=== PATIENT | male | born 1960 | race Caucasian/White ===

== ENCOUNTER 2017-03-22 15:08 | Emergency (ER) | payer BC, OTHER ==
[2017-03-22 15:50] VITALS: TEMP 98.1; BMI 41.8
--- NOTE | 2017-03-22 16:09 | PDOC ---
History of Present Illness - General Chief Complaint: Chest Pain Stated Complaint: ANXIETY Time Seen by Provider: 03/22/17 16:07 - History of Present Illness Initial Comments: 03/22/17 16:19 57yo male with a pmhx of alcohol abuse, htn, hld, and panic attacks/Generalized anxiety disorder presents from home for eval of a panic attack. States he has been drinking since yesterday - he was celebrating his birthday. States his last drink was noon today. States he started to feel panicky. States he developed cp and sob with the panic attack. Denies radiation of the pain. Pt states he did his breathing exercises - slow breathing and now is feeling better. During the panic attack he felt he was "going to " - which he states has happened with his panic attacks in the past. Denies cp/sob at this time. Denies calf cramping. States he is interested in detox. Denies SI/HI. Denies abd pain. No dysuria. No f/c. No other complaints. PMHx: HTN, HLD, alcohol abuse, panick attacks, FREEDOM PSHX: L arm sx Allergies: NKDA Meds: Amlodipine, lisinopril, sertraline 03/22/17 16:25 Past History - Past Medical History Allergies/Adverse Reactions: Allergies Allergy/AdvReac Type Severity Reaction Status Date / Time No Known Allergies Allergy Verified 03/22/17 15:51 Home Medications: Ambulatory Orders Ascorbate Calcium [Vitamin C] 500 mg PO DAILY 03/22/17 Folic Acid 1 mg PO DAILY 03/22/17 Lisinopril 20 mg PO DAILY 03/22/17 Metoprolol Tartrate 25 mg PO DAILY 03/22/17 Milk Thistle 240 mg PO DAILY 03/22/17 Multivitamin [One Daily] 1 each PO DAILY 03/22/17 Sertraline HCl [Zoloft] 150 mg PO DAILY 03/22/17 Simvastatin 20 mg PO HS 03/22/17 Anemia: No Asthma: No Cancer: No Cardiac Disorders: No CVA: No COPD: No Diabetes: No HTN: Yes Hypercholesterolemia: Yes Psychiatric Problems: Yes - Surgical History Abdominal Surgery: No Appendectomy: No Cardiac Surgery: No Cholecystectomy: No Gastric Stapling: No GI Surgery: No - Immunization History Immunization Up to Date: Yes - Suicide/Smoking/Psychosocial Hx Smoking History: Never smoked Have you smoked in the past 12 months: No Information on smoking cessation initiated: No Hx Alcohol Use: Yes Review of Systems - Review of Systems Able to Perform ROS?: Yes Is the patient limited Indonesian proficient: No Constitutional: No: Chills, Fever HEENTM: No: Blurred Vision, Throat Pain, Difficulty Swallowing Respiratory: Yes: Shortness of Breath. No: Cough, Wheezing Cardiac (ROS): Yes: Chest Pain. No: Irregular Heart Rate, Lightheadedness, Palpitations ABD/GI: No: Diarrhea, Nausea, Vomiting : No: Burning, Dysuria Musculoskeletal: No: Back Pain Integumentary: Yes: Sweating Neurological: No: Headache, Numbness, Paresthesia, Ataxia, Dizziness Psychiatric: Yes: Anxiety, Stressors, Emotional Problems, Mood Swings, Other ( alcohol abuse) All Other Systems: Reviewed and Negative *Physical Exam - Vital Signs Last Vital Signs Temp Pulse Resp BP Pulse Ox 98.1 F 73 18 152/73 98 03/22/17 15:09 03/22/17 15:50 03/22/17 15:50 03/22/17 15:50 03/22/17 15:50 - Physical Exam General Appearance: Yes: Nourished, Appropriately Dressed, Apparent Distress, Alcohol on Breath, Obese, Other (anxious) HEENT: positive: EOMI, Pharynx Normal Neck: positive: Supple Respiratory/Chest: positive: Lungs Clear, Normal Breath Sounds, Other (tachypnic ). negative: Respiratory Distress, Rales, Rhonchi, Wheezing Cardiovascular: positive: Regular Rhythm, Regular Rate, S1, S2, Edema (1+ pitting edema b/l LE) Gastrointestinal/Abdominal: positive: Normal Bowel Sounds, Soft, Other (obese). negative: Rebound, Tenderness Lymphatic: negative: Tenderness Musculoskeletal: positive: Normal Inspection Extremity: positive: Normal Capillary Refill, Normal Range of Motion, Pedal Edema. negative: Tender Integumentary: positive: Normal Color, Dry, Warm Neurologic: positive: mailing specialist II-XII NML intact, Fully Oriented, Alert, Normal Response, Motor Strength 5/5, Other (anxious) Heart Score/ECG Review - ECG Intrepretation Comment:: 03/22/17 16:39 sinus at 80, LAFB, nl axis, nl interval, no acute st/t wave findings ED Treatment Course - LABORATORY CBC & Chemistry Diagram: 03/22/17 14:37 03/22/17 16:47 Medical Decision Making - Medical Decision Making 03/22/17 16:27 a/p:P 57yo male with anxiety and cp -has risk factors for CAD - will check trop, ekg -will check etoh level -requesting detox -will do labs, ekg, cxr -will give ativan for anxeity -will monitor and reassess 03/22/17 21:49 case discussed with hilaria at [facility]. Has a bed for the patient in detox. 03/22/17 23:19 trop negative no pain anxiety controlled no tongue fasciculations or tremors ambulatory with a steady gait stable for d/c to detox *DC/Admit/Observation/Transfer Diagnosis at time of Disposition: Alcohol abuse, Anxiety and depression, Atypical chest pain - Discharge Dispostion Condition at time of disposition: Stable Admit: No - Referrals Referrals: Milton Joyce MD [Staff Physician] - - Patient Instructions Printed Discharge Instructions: Alcohol Use Disorder, DI for Atypical Chest Pain Additional Instructions: Please go to [facility] for your detox from ETOH. Please make an appointment to see your PMD. Please return to the ED with any further complaints. - Post Discharge Activity
[2017-03-22] MEDS ORDERED: FOLIC ACID INJECTION - 1 MG, THIAMINE HCL 100 MG, MULTIVIT INJECTION ADULT 10 ML in SOD... IVPB ONE (16:18)
[2017-03-22 16:57] LABS: URINE APPEARANCE CLEAR; URINE BILIRUBIN NEGATIVE (NEGATIVE); URINE BLOOD NEGATIVE (NEGATIVE); URINE COLOR YELLOW; URINE GLUCOSE (UA) NEGATIVE (NEGATIVE); URINE KETONE TRACE (NEGATIVE); URINE LEUK ESTERASE NEGATIVE (NEGATIVE); URINE NITRITE NEGATIVE (NEGATIVE); URINE PROTEIN NEGATIVE (NEGATIVE); URINE UROBILINOGEN 4.0 E.U/dl mg/dL (0.2-1.0)
[2017-03-22 16:58] LABS: BASO % 0.3 % (0-2.0); EOS % 2.5 % (0-4.5); HEMATOCRIT 42.7 % (35.4-49); HEMOGLOBIN 14.6 GM/dL (11.7-16.9); LYMPH % 9.7 % (8-40); MCH 35.5 pg (25.7-33.7); MCHC 34.2 g/dl (32.0-35.9); MEAN CELL VOLUME 103.7 fl (80-96); MEAN PLT VOLUME 8.5 fl (7.5-11.1); MONO % 7.6 % (3.8-10.2); NEUT % 79.9 % (42.8-82.8); PLATELET COUNT 143 K/MM3 (134-434); RBC 4.12 M/mm3 (4.00-5.60); RDW 14.6 % (11.9-15.9); WHITE BLOOD COUNT 7.3 K/mm3 (4.0-10.0)
[2017-03-22 17:13] LABS: INR 0.97 (0.82-1.09)
[2017-03-22 17:16] LABS: ACTIVATED PTT 26.6 SECONDS (26.9-34.4); URINE AMPHETAMINES NEGATIVE ng/ml (CUTOFF=500)
[2017-03-22 17:17] LABS: COCAINE, UR NEGATIVE ng/ml (CUTOFF=300); METHADONE, UR NEGATIVE ng/ml (CUTOFF=300); OPIATES, URI NEGATIVE ng/ml (CUTOFF=300); PHENCYCLIDINE,URINE NEGATIVE ng/ml (CUTOFF=25); URINE BARBITURATES NEGATIVE ng/ml (CUTOFF=200); URINE BENZODIAZEPINES POSITIVE ng/ml (CUTOFF=200)
[2017-03-22 17:46] LABS: ALBUMIN 3.5 g/dl (3.4-5.0); ANION GAP 14 (8-16); BILIRUBIN,TOTAL 0.9 mg/dL (0.2-1.0); BLOOD UREA NITROGEN 5 mg/dL (7-18); CALCIUM 8.1 mg/dL (8.5-10.1); CHLORIDE 101 mmol/L (98-107); CO2 26 mmol/L (21-32); CREATININE 0.6 mg/dL (0.7-1.3); GLUCOSE,RANDOM 88 mg/dL (74-106); MAGNESIUM 1.8 mg/dL (1.8-2.4); POTASSIUM 3.5 mmol/L (3.5-5.1); SGOT/AST 57 U/L (15-37); SGPT/ALT 58 U/L (12-78); SODIUM 141 mmol/L (136-145)
[2017-03-22 17:49] LABS: ALK PHOS 110 U/L (45-117)
[2017-03-22 19:05] VITALS: BP 165/87; PULSE 86
[2017-03-22] MEDS ORDERED: LORazepam 1 MG TABLET PO ONE (20:20)
[2017-03-22] MEDS ORDERED: LORazepam 0.5 MG TABLET ONE (20:29)
--- NOTE | 2017-03-23 10:33 | EKG ---
Test Reason : Blood Pressure : / mmHG Vent. Rate : 080 BPM Atrial Rate : 080 BPM P-R Int : 146 ms QRS Dur : 080 ms QT Int : 366 ms P-R-T Axes : 043 -48 033 degrees QTc Int : 422 ms NORMAL SINUS RHYTHM LEFT ANTERIOR FASCICULAR BLOCK ABNORMAL ECG NO PREVIOUS ECGS AVAILABLE Confirmed by MARLEN TEIXEIRA, LIOR ([id number]) on 03/23/2017 10:33:10 AM Referred By: Confirmed By:LIOR GEE MD
== END 2017-03-22 23:29 | disposition home or self-care (01) ==
LOC: JER 15:08
PROC: 3E033GC Introduction of Other Therapeutic Substance into Peripheral Vein, Percutaneous Approach (ICD-10-PCS; principal; 2017-03-22)
PROC: 3E033NZ Introduction of Analgesics, Hypnotics, Sedatives into Peripheral Vein, Percutaneous Approach (ICD-10-PCS; 2017-03-22)
DX: F10.10 Alcohol abuse, uncomplicated (principal); F41.8 Other specified anxiety disorders; R07.89 Other chest pain; I10 Essential (primary) hypertension; E78.00 Pure hypercholesterolemia, unspecified; F99 Mental disorder, not otherwise specified
CPT/HCPCS: 36415; 71045-TC; 80053; 80307; 81003; 82550; 83735; 83880; 84484; 85025; 85610; 85730; 93005; 93010; 99285-25

== ENCOUNTER 2017-03-23 00:48 | Inpatient (IN) | payer OTHER ==
--- NOTE | 2017-03-23 01:10 | HP ---
CIWA Score - CIWA Score Nausea/Vomitin-No Nausea/No Vomiting Muscle Tremors: 5 Anxiety: 5 Agitation: 4-Moderately Restless Paroxysmal Sweats: No Perspiration Orientation: 0-Oriented Tacttile Disturbances: 0-None Auditory Disturbances: 0-None Visual Disturbances: 0-None Headache: 4-Moderately Severe CIWA-Ar Total Score: 18 Admission ROS S - HPI Chief Complaint: Alcohol withdrawal symptoms Allergies/Adverse Reactions: Allergies Allergy/AdvReac Type Severity Reaction Status Date / Time No Known Allergies Allergy Verified 03/22/17 15:51 History of Present Illness: 57 year old male with a long history of alcohol dependence is admitted to detox. Patient has been in previous detox and reports 7 months of sobriety. He has medical history of HTN, hypercholesterolemia, GERD, anxiety and depression. He denies suicidal ideation at this time. Patient was referred from ER by Dr. Palmer. His urine toxicology was positive for benzodiazepine from librium given in ER. Exam Limitations: Clinical Condition (very anxious) - Ebola screening Have you traveled outside of the country in the last 21 days: No Have you had contact with anyone from an Ebola affected area: No Have you been sick,other than usual withdrawal symptoms: No Do you have a fever: No - Review of Systems Constitutional: Chills, Loss of Appetite, Night Sweats, Changes in sleep EENT: reports: Other (uses prescription glaasses) Respiratory: reports: No Symptoms reported Cardiac: reports: No Symptoms Reported GI: reports: Poor Appetite, Poor Fluid Intake, Abdominal cramping : reports: No Symptoms Reported Musculoskeletal: reports: Muscle Pain, Muscle Weakness Integumentary: reports: Flushing Neuro: reports: Headache, Tingling, Tremors Endocrine: reports: No Symptoms Reported Hematology: reports: No Symptoms Reported Psychiatric: reports: Orientated x3, Agitated, Anxious, Depressed Other Systems: Reviewed and Negative Patient History - Patient Medical History Hx Anemia: No Hx Asthma: No Hx Chronic Obstructive Pulmonary Disease (COPD): No Hx Cancer: No Hx Cardiac Disorders: No Hx Congestive Heart Failure: No Hx Hypertension: Yes Hx Hypercholesterolemia: Yes HX Cerebrovascular Accident: No Hx Seizures: No Hx Diabetes: No Hx Gastrointestinal Disorders: Yes (GERD) Hx Liver Disease: No Hx Genitourinary Disorders: No Hx Sexually Transmitted Disorders: No Hx Renal Disease (ESRD): No Hx Thyroid Disease: No Hx Human Immunodeficiency Virus (HIV): No (Negative) Hx Hepatitis C: No Hx Depression: Yes Hx Suicide Attempt: No (Denies suicidal ideation) Hx Bipolar Disorder: No Hx Schizophrenia: No - Patient Surgical History Past Surgical History: Yes Hx Neurologic Surgery: No Hx Cataract Extraction: No Hx Cardiac Surgery: No Hx Lung Surgery: No Hx Abdominal Surgery: No Hx Appendectomy: No Hx Cholecystectomy: No Hx Genitourinary Surgery: No Hx Section: No Hx Orthopedic Surgery: Yes (ORIF left hand 2015) Anesthesia Reaction: No - PPD History Previous Implant?: Yes Documented Results: Negative w/o proof Implanted On Prior [facility] Admission?: No PPD to be Administered?: Yes - Reproductive History Patient is a Female of Child Bearing Age (11 -55 yrs old): No (MALE) - Smoking Cessation Smoking history: Never smoked Have you smoked in the past 12 months: No Hx Chewing Tobacco Use: No Initiated information on smoking cessation: No - Substance & Tx. History Hx Alcohol Use: Yes Hx Substance Use: No Substance Use Type: Alcohol Hx Substance [facility] - Substances Abused Alcohol Route: Oral Frequency: Daily Amount used: WHIYSKY- 3 SHOTS, WINE - 5 GLASSES Age of first use: 12 Date of Last Use: 03/22/17 Family Disease History - Family Disease History Family History: Denies Admission Physical Exam [facility] - Physical General Appearance: Yes: Moderate Distress, Tremorous, Irritable, Sweating, Anxious HEENTM: Yes: Normal ENT Inspection, Normocephalic, Normal Voice, MAICOL Respiratory: Yes: Lungs Clear, Normal Breath Sounds, No Respiratory Distress Neck: Yes: Supple Breast: Yes: Breast Exam Deferred Cardiology: Yes: Tachycardia Abdominal: Yes: Normal Bowel Sounds, Soft Genitourinary: Yes: Within Normal Limits Back: Yes: Normal Inspection Musculoskeletal: Yes: Back pain, Muscle Pain, Muscle weakness Extremities: Yes: Tremors (SEVERE BILATERAL HAND) Neurological: Yes: Alert Integumentary: Yes: Warm, Clammy Lymphatic: Yes: Within Normal Limits - Diagnostic (1) Alcohol dependence with uncomplicated withdrawal Current Visit: Yes Status: Chronic (2) HTN (hypertension) Current Visit: Yes Status: Chronic Qualifiers: Hypertension type: essential hypertension Qualified Code(s): I10 - Essential (primary) hypertension (3) Hypercholesteremia Current Visit: Yes Status: Chronic (4) Anxiety Current Visit: Yes Status: Chronic (5) Depression Current Visit: Yes Status: Chronic Cleared for Admission [facility] - Detox or Rehab [facility] Level of Care: Medically Managed Detox Regimen/Protocol: Librium S Breath Alcohol Content Breath Alcohol Content: 0 Vital Signs - Vital Signs Vital Signs Refused: No Temperature: 98.5 F Temperature Source: Oral Pulse Rate: 112 Respiratory Rate: 20 Blood Pressure: 165/91 BP Location: Left Arm Blood Pressure Position: Sitting - Height Height: 6 ft 3 in - Weight Weight: 326 lb Weight Measurement Method: Standing Scale Body Mass Index (BMI): 40.7 - Bowel Function Bowel Movement: Yes Urine Drug Screen - Test Device Lot Number: [id number] Expiration Date: 11/26/18 - Results Drug Screen Negative: No Urine Drug Screen Results: ASHA-Cocaine, BZO-Benzodiazepines, TCA-Tricyclic Antidepress
[2017-03-23] MEDS ORDERED: MAGNESIUM CITRATE 300 ML BOTTLE PO PRN (01:29)
[2017-03-23] MEDS ORDERED: chlordiazePOXIDE HCL 25 MG CAPSULE PO ONE ×2 (01:29→14:00)
[2017-03-23] MEDS ORDERED: guaiFENesin/D-METHORPHAN HB 10 ML UNIT-DOSE CUPS PO PRN (01:29)
[2017-03-23] MEDS ORDERED: chlordiazePOXIDE HCL 25 MG CAPSULE PO PRN (01:29)
[2017-03-23] MEDS ORDERED: ACETAMINOPHEN 325 MG TABLET (FP) PO PRN (01:29)
[2017-03-23] MEDS ORDERED: METHADONE HCL 10 MG TABLET (FOR DETOX USE ONLY) PO ONE ×3 (01:29→22:00)
[2017-03-23] MEDS ORDERED: MAG HYDROX/AL HYDROX/SIMETH 30 ML UNIT-DOSE CUP PO PRN (01:29)
[2017-03-23] MEDS ORDERED: IBUPROFEN 400 MG TABLET (FP) PO PRN (01:29)
[2017-03-23] MEDS ORDERED: MENTHOL/PHENOL 1 EACH UD MM PRN (01:29)
[2017-03-23] MEDS ORDERED: MAGNESIUM HYDROX 2400MG/30ML ORAL SUSPENSION 30 ML CUP PO PRN (01:29)
[2017-03-23] MEDS ORDERED: P-EPHED 60MG/TRIPROLIDI 2.5MG TABLET PO PRN (01:29)
[2017-03-23] MEDS ORDERED: cloNIDine HCL 0.1 MG TABLET PO ONE (01:34)
[2017-03-23 01:42] VITALS: BMI 40.7
[2017-03-23] MEDS: chlordiazePOXIDE HCL 25 MG CAPSULE PO PRN (02:34)
[2017-03-23] MEDS ORDERED: chlordiazePOXIDE HCL 25 MG CAPSULE PO SCH (05:00)
[2017-03-23] MEDS: chlordiazePOXIDE HCL 25 MG CAPSULE PO SCH ×4 (05:43→22:38)
--- NOTE | 2017-03-23 08:57 | CONSULT ---
[facility] Psychiatric Consult - Data Date of interview: 03/23/17 Admission source: [facility] Identifying data: This is 57 years old male with no psychiatric hospitalization history intoicated with: Alcohol, Opioids, Benzodiazepins Substance Abuse History: - Smoking Cessation. Smoking history: Never smoked. Have you smoked in the past 12 months: No. Hx Chewing Tobacco Use: No. Initiated information on smoking cessation: No. - Substance & Tx. History. Hx Alcohol Use: Yes. Hx Substance Use: No. Substance Use Type: Alcohol. Hx Substance Use Treatment: Yes ([facility]). - Substances Abused. Alcohol. Route: Oral. Frequency: Daily. Amount used: WHIYSKY- 3 SHOTS, WINE - 5 GLASSES. Age of first use: 12. Date of Last Use: Medical History: Obesity, HTN, Hypercholesterolemia Psychiatric History: Patient reports history of anxiety and depression, reports taking prior to admission: Zoloft 50mg poqd Physical/Sexual Abuse/Trauma History: Denies Additional Comment: Zoloft 50mg poqd Mental Status Exam - Mental Status Exam Alert and Oriented to: Person Cognitive Function: Fair Patient Appearance: Unkempt Mood: Sad Affect: Flat Patient Behavior: Sedated Speech Pattern: Delayed Voice Loudness: Mildly Soft/Quiet Thought Process: Goal Oriented Thought Disorder: Being Controlled Hallucinations: Denies Suicidal Ideation: Denies Homicidal Ideation: Denies Insight/Judgement: Fair Sleep: Difficulty falling asleep Appetite: Weight gain Muscle strength/Tone: Mild Hypotonicity Gait/Station: Shuffling Additional Comments: Zoloft 50mg poqd Psychiatric Findings - Problem List ([place] 1, 2,3) (1) Drug-induced mood disorder Current Visit: Yes Status: Acute (2) Alcohol dependence with uncomplicated withdrawal Current Visit: Yes Status: Chronic (3) Anxiety Current Visit: Yes Status: Chronic (4) Depression Current Visit: Yes Status: Chronic (5) Alcohol abuse Current Visit: No Status: Acute (6) Anxiety and depression Current Visit: No Status: Acute - Initial Treatment Plan Initial Treatment Plan: Zoloft 50mg poqd
[2017-03-23 10:05] LABS: HEMATOCRIT 41.5 % (35.4-49); HEMOGLOBIN 13.7 GM/dL (11.7-16.9); MCH 34.9 pg (25.7-33.7); MEAN CELL VOLUME 105.9 fl (80-96); PLATELET COUNT 121 K/MM3 (134-434); RBC 3.91 M/mm3 (4.00-5.60); RDW 14.7 % (11.9-15.9); WHITE BLOOD COUNT 7.3 K/mm3 (4.0-10.0)
[2017-03-23 10:15] LABS: CHLORIDE 99 mmol/L (98-107); POTASSIUM 3.7 mmol/L (3.5-5.1); SODIUM 137 mmol/L (136-145)
[2017-03-23 10:25] LABS: ALBUMIN 3.3 g/dl (3.4-5.0); ALK PHOS 93 U/L (45-117); ANION GAP 9 (8-16); BILIRUBIN,TOTAL 1.3 mg/dL (0.2-1.0); BLOOD UREA NITROGEN 8 mg/dL (7-18); CALCIUM 7.6 mg/dL (8.5-10.1); CO2 29 mmol/L (21-32); CREATININE 0.7 mg/dL (0.7-1.3); GLUCOSE,RANDOM 90 mg/dL (74-106); SGOT/AST 39 U/L (15-37); SGPT/ALT 45 U/L (12-78); TOT PROT 6.2 g/dl (6.4-8.2)
[2017-03-23] MEDS: METOPROLOL TARTRATE 25 MG TABLET (FP) PO SCH (10:33)
[2017-03-23] MEDS: LISINOPRIL 20 MG TABLET (FP) PO SCH (10:33)
[2017-03-23] MEDS: PRENATAL VITAMINS W/ FOLIC ACID TABLET (FP) PO SCH (10:33)
[2017-03-23] MEDS: SERTRALINE HCL 50 MG TABLET (FP) PO SCH (10:34)
--- NOTE | 2017-03-23 10:34 | EKG ---
Test Reason : Blood Pressure : / mmHG Vent. Rate : 087 BPM Atrial Rate : 087 BPM P-R Int : 146 ms QRS Dur : 080 ms QT Int : 354 ms P-R-T Axes : 053 -41 055 degrees QTc Int : 425 ms NORMAL SINUS RHYTHM LEFT AXIS DEVIATION ABNORMAL ECG WHEN COMPARED WITH ECG OF 22-MAR-2017 15:52, NO SIGNIFICANT CHANGE WAS FOUND Confirmed by LIOR GEE MD ([id number]) on 03/23/2017 10:33:43 AM Referred By: Confirmed By:LIOR GEE MD
--- NOTE | 2017-03-23 13:44 | PN ---
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, feel tired tremor anxiety GI upset sweat Objective: 03/23/17 13:41 Vital Signs Temperature 98.2 F 03/23/17 13:36 Pulse Rate 95 H 03/23/17 13:36 Respiratory Rate 20 03/23/17 13:36 Blood Pressure 140/88 03/23/17 13:36 O2 Sat by Pulse Oximetry (%) Laboratory Last Values WBC 7.3 K/mm3 (4.0-10.0) 03/23/17 07:00 RBC 3.91 M/mm3 (4.00-5.60) L 03/23/17 07:00 Hgb 13.7 GM/dL (11.7-16.9) 03/23/17 07:00 Hct 41.5 % (35.4-49) 03/23/17 07:00 MCV 105.9 fl (80-96) H 03/23/17 07:00 MCH 34.9 pg (25.7-33.7) H 03/23/17 07:00 MCHC 33.0 g/dl (32.0-35.9) 03/23/17 07:00 RDW 14.7 % (11.9-15.9) 03/23/17 07:00 Plt Count 121 K/MM3 (134-434) L 03/23/17 07:00 MPV 9.0 fl (7.5-11.1) 03/23/17 07:00 Sodium 137 mmol/L (136-145) 03/23/17 07:00 Potassium 3.7 mmol/L (3.5-5.1) 03/23/17 07:00 Chloride 99 mmol/L (98-107) 03/23/17 07:00 Carbon Dioxide 29 mmol/L (21-32) 03/23/17 07:00 Anion Gap 9 (8-16) 03/23/17 07:00 BUN 8 mg/dL (7-18) D 03/23/17 07:00 Creatinine 0.7 mg/dL (0.7-1.3) 03/23/17 07:00 Creat Clearance w eGFR > 60 (>60) 03/23/17 07:00 Random Glucose 90 mg/dL (74-106) 03/23/17 07:00 Calcium 7.6 mg/dL (8.5-10.1) L 03/23/17 07:00 Total Bilirubin 1.3 mg/dL (0.2-1.0) H D 03/23/17 07:00 AST 39 U/L (15-37) H D 03/23/17 07:00 ALT 45 U/L (12-78) D 03/23/17 07:00 Alkaline Phosphatase 93 U/L (45-117) 03/23/17 07:00 Total Protein 6.2 g/dl (6.4-8.2) L 03/23/17 07:00 Albumin 3.3 g/dl (3.4-5.0) L 03/23/17 07:00 RPR Titer Nonreactive (NONREACTIVE) 03/23/17 07:00 lab noted Assessment: 03/23/17 13:43 withdrawal sx Plan: continue detox librium 50 mg x 1 at 1400
[2017-03-23] MEDS: THIAMINE HCL 100 MG TABLET (FP) PO SCH (22:38)
[2017-03-23] MEDS: ATORVASTATIN CA 10 MG TABLET (FP) PO SCH (22:38)
[2017-03-24] MEDS: chlordiazePOXIDE HCL 25 MG CAPSULE PO PRN ×2 (02:31→15:19)
[2017-03-24] MEDS ORDERED: chlordiazePOXIDE HCL 25 MG CAPSULE PO SCH (05:00)
[2017-03-24] MEDS: chlordiazePOXIDE HCL 25 MG CAPSULE PO SCH ×4 (05:55→22:35)
--- NOTE | 2017-03-24 09:57 | PN ---
[facility] CIWA - CIWA Score Nausea/Vomitin Muscle Tremors: 3 Anxiety: 3 Agitation: 3 Paroxysmal Sweats: 3 Orientation: 0-Oriented Tacttile Disturbances: 1-Very Mild Itch/Numbness Auditory Disturbances: 0-None Visual Disturbances: 0-None Headache: 1-Very Mild CIWA-Ar Total Score: 17 S Progress Note (SOAP) Subjective: nausea, sweats, interrupted sleep, a xiety, termors Objective: 03/24/17 09:57 Vital Signs - 8 hr 03/24/17 03/24/17 03/24/17 03:30 06:54 09:27 Temperature 97.4 F L 98.6 F Pulse Rate 77 95 H Respiratory 18 19 20 Rate Blood Pressure 130/74 148/86 Laboratory Tests 03/23/17 03/23/17 03/23/17 07:00 07:00 07:00 WBC 7.3 RBC 3.91 L Hgb 13.7 Hct 41.5 MCV 105.9 H MCH 34.9 H MCHC 33.0 RDW 14.7 Plt Count 121 L MPV 9.0 Sodium 137 Potassium 3.7 Chloride 99 Carbon Dioxide 29 Anion Gap 9 BUN 8 D Creatinine 0.7 Creat Clearance w eGFR > 60 Random Glucose 90 Calcium 7.6 L Total Bilirubin 1.3 H D AST 39 H D ALT 45 D Alkaline Phosphatase 93 Total Protein 6.2 L Albumin 3.3 L RPR Titer Hepatitis C Antibody 0.1 03/23/17 07:00 WBC RBC Hgb Hct MCV MCH MCHC RDW Plt Count MPV Sodium Potassium Chloride Carbon Dioxide Anion Gap BUN Creatinine Creat Clearance w eGFR Random Glucose Calcium Total Bilirubin AST ALT Alkaline Phosphatase Total Protein Albumin RPR Titer Nonreactive Hepatitis C Antibody Assessment: 03/24/17 09:57 withdrawal sx, alcohol only cont detox fluids, encourage ambualtion
[2017-03-24] MEDS ORDERED: METHADONE HCL 5 MG TABLET (FOR DETOX USE ONLY) PO SCH (10:00)
[2017-03-24] MEDS: amLODIPine BESYLATE 5 MG TABLET (FP) PO SCH (10:31)
[2017-03-24] MEDS: LISINOPRIL 20 MG TABLET (FP) PO SCH (10:31)
[2017-03-24] MEDS: PRENATAL VITAMINS W/ FOLIC ACID TABLET (FP) PO SCH (10:31)
[2017-03-24] MEDS: METOPROLOL TARTRATE 25 MG TABLET (FP) PO SCH (10:31)
[2017-03-24] MEDS: SERTRALINE HCL 50 MG TABLET (FP) PO SCH (10:31)
[2017-03-24 13:52] LABS: URINE APPEARANCE CLEAR; URINE BILIRUBIN NEGATIVE (NEGATIVE); URINE BLOOD NEGATIVE (NEGATIVE); URINE COLOR LTYELLOW; URINE GLUCOSE (UA) NEGATIVE (NEGATIVE); URINE KETONE NEGATIVE (NEGATIVE); URINE LEUK ESTERASE NEGATIVE (NEGATIVE); URINE NITRITE NEGATIVE (NEGATIVE); URINE PROTEIN NEGATIVE (NEGATIVE); URINE UROBILINOGEN NEGATIVE mg/dL (0.2-1.0)
[2017-03-24] MEDS: LOPERAMIDE HCL 2 MG CAPSULE PO PRN (15:20)
[2017-03-24] MEDS: THIAMINE HCL 100 MG TABLET (FP) PO SCH (22:35)
[2017-03-24] MEDS: ATORVASTATIN CA 10 MG TABLET (FP) PO SCH (22:35)
[2017-03-25] MEDS ORDERED: chlordiazePOXIDE 5 MG CAPSULE PO SCH (05:00)
[2017-03-25] MEDS: chlordiazePOXIDE 5 MG CAPSULE PO SCH ×4 (05:13→22:12)
[2017-03-25] MEDS ORDERED: METHADONE HCL 5 MG TABLET (FOR DETOX USE ONLY) PO SCH (10:00)
[2017-03-25] MEDS: LISINOPRIL 20 MG TABLET (FP) PO SCH (10:11)
[2017-03-25] MEDS: SERTRALINE HCL 50 MG TABLET (FP) PO SCH (10:11)
[2017-03-25] MEDS: PRENATAL VITAMINS W/ FOLIC ACID TABLET (FP) PO SCH (10:11)
[2017-03-25] MEDS: amLODIPine BESYLATE 5 MG TABLET (FP) PO SCH (10:11)
[2017-03-25] MEDS: METOPROLOL TARTRATE 25 MG TABLET (FP) PO SCH (10:12)
[2017-03-25] MEDS: LOPERAMIDE HCL 2 MG CAPSULE PO PRN (10:14)
--- NOTE | 2017-03-25 16:18 | PN ---
[facility] Progress Note (SOAP) Subjective: Tremors, Anxious, Diarrhea. Objective: PT. A & O X 3, OBSERVED AMBULATING ON UNIT. NO ACUTE DISTRESS. PT. DENIES CHEST PAIN. 03/25/17 16:16 Vital Signs Temperature 97.5 F L 03/25/17 13:21 Pulse Rate 82 03/25/17 13:21 Respiratory Rate 18 03/25/17 13:21 Blood Pressure 125/81 03/25/17 13:21 O2 Sat by Pulse Oximetry (%) Laboratory Tests 03/23/17 03/23/17 03/23/17 07:00 07:00 07:00 WBC 7.3 RBC 3.91 L Hgb 13.7 Hct 41.5 MCV 105.9 H MCH 34.9 H MCHC 33.0 RDW 14.7 Plt Count 121 L MPV 9.0 Sodium 137 Potassium 3.7 Chloride 99 Carbon Dioxide 29 Anion Gap 9 BUN 8 D Creatinine 0.7 Creat Clearance w eGFR > 60 Random Glucose 90 Calcium 7.6 L Total Bilirubin 1.3 H D AST 39 H D ALT 45 D Alkaline Phosphatase 93 Total Protein 6.2 L Albumin 3.3 L Urine Color Urine Appearance Urine pH Ur Specific [place] Urine Protein Urine Glucose (UA) Urine Ketones Urine Blood Urine Nitrite Urine Bilirubin Urine Urobilinogen Ur Leukocyte Esterase RPR Titer Hepatitis C Antibody 0.1 03/23/17 03/24/17 07:00 10:00 WBC RBC Hgb Hct MCV MCH MCHC RDW Plt Count MPV Sodium Potassium Chloride Carbon Dioxide Anion Gap BUN Creatinine Creat Clearance w eGFR Random Glucose Calcium Total Bilirubin AST ALT Alkaline Phosphatase Total Protein Albumin Urine Color Ltyellow Urine Appearance Clear Urine pH 7.0 Ur Specific [place] 1.011 Urine Protein Negative Urine Glucose (UA) Negative Urine Ketones Negative Urine Blood Negative Urine Nitrite Negative Urine Bilirubin Negative Urine Urobilinogen Negative Ur Leukocyte Esterase Negative RPR Titer Nonreactive Hepatitis C Antibody LABS NOTED. Assessment: 03/25/17 16:16 WITHDRAWAL SYMPTOMS. Plan: CONTINUE DETOX.
[2017-03-25] MEDS: ATORVASTATIN CA 10 MG TABLET (FP) PO SCH (22:13)
[2017-03-25] MEDS: THIAMINE HCL 100 MG TABLET (FP) PO SCH (22:14)
[2017-03-26] MEDS ORDERED: chlordiazePOXIDE HCL 10 MG CAPSULE PO SCH (05:00)
[2017-03-26] MEDS: chlordiazePOXIDE HCL 10 MG CAPSULE PO SCH ×4 (05:43→22:15)
[2017-03-26] MEDS: SERTRALINE HCL 50 MG TABLET (FP) PO SCH (10:05)
[2017-03-26] MEDS: LISINOPRIL 20 MG TABLET (FP) PO SCH (10:05)
[2017-03-26] MEDS: METOPROLOL TARTRATE 25 MG TABLET (FP) PO SCH (10:05)
[2017-03-26] MEDS: PRENATAL VITAMINS W/ FOLIC ACID TABLET (FP) PO SCH (10:05)
[2017-03-26] MEDS: amLODIPine BESYLATE 5 MG TABLET (FP) PO SCH (10:05)
--- NOTE | 2017-03-26 14:51 | PN ---
[facility] Progress Note (SOAP) Subjective: Anxious, interrupted sleep, sweating Objective: 03/26/17 14:49 Last Vital Signs Temp Pulse Resp BP Pulse Ox 96.8 F L 78 18 144/78 03/26/17 14:14 03/26/17 14:14 03/26/17 14:14 03/26/17 14:14 Laboratory Tests 03/23/17 03/23/17 03/23/17 07:00 07:00 07:00 WBC 7.3 RBC 3.91 L Hgb 13.7 Hct 41.5 MCV 105.9 H MCH 34.9 H MCHC 33.0 RDW 14.7 Plt Count 121 L MPV 9.0 Sodium 137 Potassium 3.7 Chloride 99 Carbon Dioxide 29 Anion Gap 9 BUN 8 D Creatinine 0.7 Creat Clearance w eGFR > 60 Random Glucose 90 Calcium 7.6 L Total Bilirubin 1.3 H D AST 39 H D ALT 45 D Alkaline Phosphatase 93 Total Protein 6.2 L Albumin 3.3 L Urine Color Urine Appearance Urine pH Ur Specific [place] Urine Protein Urine Glucose (UA) Urine Ketones Urine Blood Urine Nitrite Urine Bilirubin Urine Urobilinogen Ur Leukocyte Esterase RPR Titer Hepatitis C Antibody 0.1 03/23/17 03/24/17 07:00 10:00 WBC RBC Hgb Hct MCV MCH MCHC RDW Plt Count MPV Sodium Potassium Chloride Carbon Dioxide Anion Gap BUN Creatinine Creat Clearance w eGFR Random Glucose Calcium Total Bilirubin AST ALT Alkaline Phosphatase Total Protein Albumin Urine Color Ltyellow Urine Appearance Clear Urine pH 7.0 Ur Specific [place] 1.011 Urine Protein Negative Urine Glucose (UA) Negative Urine Ketones Negative Urine Blood Negative Urine Nitrite Negative Urine Bilirubin Negative Urine Urobilinogen Negative Ur Leukocyte Esterase Negative RPR Titer Nonreactive Hepatitis C Antibody Labs noted Assessment: 03/26/17 14:50 Withdrawal symptoms Plan: Continue detox
[2017-03-26] MEDS: LOPERAMIDE HCL 2 MG CAPSULE PO PRN (17:24)
[2017-03-26] MEDS: ATORVASTATIN CA 10 MG TABLET (FP) PO SCH (22:14)
[2017-03-26] MEDS: THIAMINE HCL 100 MG TABLET (FP) PO SCH (22:14)
[2017-03-27 06:10] VITALS: BP 133/78; PULSE 89; TEMP 97.3
[2017-03-27] MEDS ORDERED: METHADONE HCL 10 MG TABLET (FOR DETOX USE ONLY) PO SCH (10:00)
[2017-03-28] MEDS ORDERED: METHADONE HCL 10 MG TABLET (FOR DETOX USE ONLY) PO SCH (06:00)
== END 2017-03-27 09:26 | disposition home or self-care (01) | DRG 897 ==
LOC: YASAS 00:48 → Y6N 01:01 → Y3N 03-24 20:27
PROVIDERS: ADMIT Internal Medicine; ATTEND Internal Medicine
PROC: HZ2ZZZZ Detoxification Services for Substance Abuse Treatment (ICD-10-PCS; principal; 2017-03-23)
DX: F10.230 Alcohol dependence with withdrawal, uncomplicated (principal); Z68.41 Body mass index [BMI] 40.0-44.9, adult; F19.24 Other psychoactive substance dependence with psychoactive substance-induced mood disorder; F41.9 Anxiety disorder, unspecified; F32.9 Major depressive disorder, single episode, unspecified; I10 Essential (primary) hypertension; E78.00 Pure hypercholesterolemia, unspecified; K21.9 Gastro-esophageal reflux disease without esophagitis; E66.9 Obesity, unspecified
CPT/HCPCS: 36415; 80053; 81003; 85027; 86593; 86803; 93005; 93010; J0735

== ENCOUNTER 2017-05-12 19:50 | Inpatient (IN) | payer BC ==
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
[2017-05-12] MEDS ORDERED: chlordiazePOXIDE HCL 25 MG CAPSULE PO ONE (22:16)
[2017-05-12] MEDS ORDERED: chlordiazePOXIDE HCL 25 MG CAPSULE ONE (22:20)
[2017-05-12] MEDS ORDERED: FOLIC ACID INJECTION - 1 MG, THIAMINE HCL 100 MG, MULTIVIT INJECTION ADULT 10 ML in SOD... IVPB ONE (22:40)
[2017-05-12 23:00] LABS: BASO % 0.3 % (0-2.0); EOS % 0.4 % (0-4.5); HEMATOCRIT 44.6 % (35.4-49); HEMOGLOBIN 15.6 GM/dL (11.7-16.9); LYMPH % 10.5 % (8-40); MCH 36.2 pg (25.7-33.7); MCHC 34.9 g/dl (32.0-35.9); MEAN CELL VOLUME 103.7 fl (80-96); MEAN PLT VOLUME 7.5 fl (7.5-11.1); MONO % 11.4 % (3.8-10.2); NEUT % 77.4 % (42.8-82.8); PLATELET COUNT 109 K/MM3 (134-434); RDW 15.8 % (11.9-15.9); WHITE BLOOD COUNT 8.2 K/mm3 (4.0-10.0)
[2017-05-13 00:12] LABS: ALK PHOS 167 U/L (45-117); ANION GAP 19 (8-16); BILIRUBIN,TOTAL 0.5 mg/dL (0.2-1.0); BLOOD UREA NITROGEN 3 mg/dL (7-18); CALCIUM 7.4 mg/dL (8.5-10.1); CHLORIDE 100 mmol/L (98-107); CO2 22 mmol/L (21-32); CREATININE 0.7 mg/dL (0.7-1.3); GLUCOSE,RANDOM 97 mg/dL (74-106); SGOT/AST 118 U/L (15-37); SGPT/ALT 60 U/L (12-78); SODIUM 141 mmol/L (136-145)
[2017-05-13 00:20] LABS: LIPASE 305 U/L (73-393)
[2017-05-13 00:38] LABS: MAGNESIUM 2.1 mg/dL (1.8-2.4)
[2017-05-13] MEDS ORDERED: chlordiazePOXIDE HCL 25 MG CAPSULE PO ONE (04:01)
[2017-05-13] MEDS ORDERED: chlordiazePOXIDE HCL 25 MG CAPSULE ONE ×2 (04:16→06:10)
--- NOTE | 2017-05-13 04:50 | PDOC ---
*Physical Exam - Vital Signs Last Vital Signs Temp Pulse Resp BP Pulse Ox 98.8 F 118 H 16 131/71 92 L 05/12/17 19:54 05/12/17 19:54 05/12/17 19:54 05/12/17 19:54 05/12/17 19:54 ED Treatment Course - LABORATORY CBC & Chemistry Diagram: 05/12/17 22:50 05/12/17 22:50 - ADDITIONAL ORDERS Additional order review: Laboratory Results 05/12/17 22:50 Sodium 141 Potassium 4.0 Chloride 100 Carbon Dioxide 22 D Anion Gap 19 H BUN 3 L D Creatinine 0.7 Creat Clearance w eGFR > 60 Random Glucose 97 Calcium 7.4 L Magnesium 2.1 Total Bilirubin 0.5 D AST 118 H D ALT 60 D Alkaline Phosphatase 167 H D Total Protein 7.0 Albumin 3.0 L Lipase 305 Alcohol, Quantitative 339.59 H* 05/12/17 22:50 RBC 4.30 MCV 103.7 H MCHC 34.9 RDW 15.8 MPV 7.5 D Neutrophils % 77.4 Lymphocytes % 10.5 Monocytes % 11.4 H Eosinophils % 0.4 D Basophils % 0.3 - RADIOLOGY Radiology Studies Ordered: Category Date Time Status CHEST X-RAY PORTABLE* [RAD] Stat Radiology 05/13/17 03:58 Ordered - Medications Given in the ED: ED Medications Discontinued Medications Generic Name Dose Route Start Last Admin Trade Name Freq PRN Reason Stop Dose Admin Chlordiazepoxide HCl 50 mg 05/12/17 22:16 05/12/17 22:21 Librium - PO 05/12/17 22:17 50 mg ONCE ONE Administration Chlordiazepoxide HCl 100 mg 05/13/17 04:01 05/13/17 04:21 Librium - PO 05/13/17 04:02 100 mg ONCE ONE Administration Medical Decision Making - Medical Decision Making 05/13/17 06:57 Pt is in alcohol withdrawal. He has a hx of HTN and he is homeless, [facility] . Pt originally lives in [place], [place]. I received pt on signout. Labs normal. except for elevated AST and alk phos. Pt has elevated alcohol level. Pt was treated with librium earlier and again by myself. Pt will be admitted to the ICU for alcohol withdrawal. *DC/Admit/Observation/Transfer Diagnosis at time of Disposition: Alcohol abuse, Alcohol dependence with uncomplicated withdrawal - Discharge Dispostion Condition at time of disposition: Guarded Decision to Admit order Date/Time: Decision to Admit Order Category Date Time Status Decision to Admit to Hospital Routine Admission 05/13/17 04:02 Ordered - Referrals - Patient Instructions - Post Discharge Activity
[2017-05-13] MEDS ORDERED: ACETAMINOPHEN 325 MG TABLET (FP) PO PRN (05:32)
[2017-05-13] MEDS ORDERED: MAG HYDROX/AL HYDROX/SIMETH 30 ML UNIT-DOSE CUP PO PRN (05:32)
[2017-05-13] MEDS ORDERED: IBUPROFEN 400 MG TABLET (FP) PO PRN (05:32)
[2017-05-13] MEDS ORDERED: CALCIUM GLUCONATE 10% - 1,000 MG/10 ML VIAL IVPUSH ONE (05:46)
[2017-05-13] MEDS ORDERED: HEPARIN NA (PORCINE) 5,000 UNITS/ML 1ML VIAL ONE (06:11)
[2017-05-13] MEDS ORDERED: CALCIUM GLUCONATE 10% - 1,000 MG/10 ML VIAL ONE (06:11)
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
[2017-05-13] MEDS: DEXTROSE 5%-0.45% SALINE 1,000 ML IV SCH ×3 (06:28→17:00)
[2017-05-13] MEDS: chlordiazePOXIDE HCL 25 MG CAPSULE PO SCH ×4 (06:28→23:08)
[2017-05-13] MEDS: HEPARIN NA (PORCINE) 5,000 UNITS/ML 1ML VIAL SQ SCH ×3 (06:29→22:04)
[2017-05-13 06:46] LABS: URINE APPEARANCE CLEAR; URINE BILIRUBIN NEGATIVE (NEGATIVE); URINE BLOOD NEGATIVE (NEGATIVE); URINE COLOR LTYELLOW; URINE GLUCOSE (UA) 1+ (NEGATIVE); URINE KETONE NEGATIVE (NEGATIVE); URINE LEUK ESTERASE NEGATIVE (NEGATIVE); URINE NITRITE NEGATIVE (NEGATIVE); URINE PROTEIN NEGATIVE (NEGATIVE)
[2017-05-13 06:57] LABS: COCAINE, UR NEGATIVE ng/ml (CUTOFF=300); METHADONE, UR NEGATIVE ng/ml (CUTOFF=300); OPIATES, URI NEGATIVE ng/ml (CUTOFF=300); PHENCYCLIDINE,URINE NEGATIVE ng/ml (CUTOFF=25); URINE AMPHETAMINES NEGATIVE ng/ml (CUTOFF=500); URINE BARBITURATES NEGATIVE ng/ml (CUTOFF=200); URINE BENZODIAZEPINES NEGATIVE ng/ml (CUTOFF=200)
--- NOTE | 2017-05-13 08:49 | PN ---
Physical Exam: SUBJECTIVE: Patient seen and examined Patient is having tremors, Librium is helping minimally, drinks around 2 bottles of wine per day. OBJECTIVE: Vital Signs Temperature 98.7 F 05/13/17 05:17 Pulse Rate 102 H 05/13/17 05:17 Respiratory Rate 18 05/13/17 05:17 Blood Pressure 151/79 05/13/17 05:17 O2 Sat by Pulse Oximetry (%) 95 05/13/17 05:17 GENERAL: The patient is awake, tremolous ,fully oriented. HEAD: Normal with no signs of trauma. EYES: PERRL, extraocular movements intact, sclera anicteric, conjunctiva clear. ENT: Ears normal, oropharynx clear without exudates, moist mucous membranes. NECK: Trachea midline, full range of motion, supple. LUNGS: Breath sounds equal, clear to auscultation bilaterally, no wheezes, no crackles, no accessory muscle use. HEART: tachycardic , S1 S2 positive , without murmur, no rub or gallop. ABDOMEN: Soft, nontender, large abdomen, normoactive bowel sounds, no guarding, no rebound, no masses appreciated. EXTREMITIES: 2+ pulses, warm, well-perfused, no edema. NEUROLOGICAL: Cranial nerves II through XII grossly intact. Normal speech, gait not observed. PSYCH: Normal mood, normal affect. SKIN: Warm, dry, normal turgor, no rashes or lesions noted CBCD WBC 8.2 K/mm3 (4.0-10.0) 05/12/17 22:50 RBC 4.30 M/mm3 (4.00-5.60) 05/12/17 22:50 Hgb 15.6 GM/dL (11.7-16.9) D 05/12/17 22:50 Hct 44.6 % (35.4-49) 05/12/17 22:50 MCV 103.7 fl (80-96) H 05/12/17 22:50 MCHC 34.9 g/dl (32.0-35.9) 05/12/17 22:50 RDW 15.8 % (11.9-15.9) 05/12/17 22:50 Plt Count 109 K/MM3 (134-434) L 05/12/17 22:50 MPV 7.5 fl (7.5-11.1) D 05/12/17 22:50 CMP Sodium 141 mmol/L (136-145) 05/12/17 22:50 Potassium 4.0 mmol/L (3.5-5.1) 05/12/17 22:50 Chloride 100 mmol/L (98-107) 05/12/17 22:50 Carbon Dioxide 22 mmol/L (21-32) D 05/12/17 22:50 Anion Gap 19 (8-16) H 05/12/17 22:50 BUN 3 mg/dL (7-18) L D 05/12/17 22:50 Creatinine 0.7 mg/dL (0.7-1.3) 05/12/17 22:50 Creat Clearance w eGFR > 60 (>60) 05/12/17 22:50 Random Glucose 97 mg/dL (74-106) 05/12/17 22:50 Calcium 7.4 mg/dL (8.5-10.1) L 05/12/17 22:50 Total Bilirubin 0.5 mg/dL (0.2-1.0) D 05/12/17 22:50 AST 118 U/L (15-37) H D 05/12/17 22:50 ALT 60 U/L (12-78) D 05/12/17 22:50 Alkaline Phosphatase 167 U/L (45-117) H D 05/12/17 22:50 Total Protein 7.0 g/dl (6.4-8.2) 05/12/17 22:50 Albumin 3.0 g/dl (3.4-5.0) L 05/12/17 22:50 Current Medications Generic Name Dose Route Start Last Admin Trade Name Freq PRN Reason Stop Dose Admin Acetaminophen 650 mg 05/13/17 05:32 Tylenol - PO Q4H PRN FEVER Al Hydroxide/Mg Hydroxide 30 ml 05/13/17 05:32 Mylanta Oral Suspension - PO Q6H PRN DYSPEPSIA Atorvastatin Calcium 10 mg 05/13/17 22:00 Lipitor - PO HS BONNIE Chlordiazepoxide HCl 50 mg 05/13/17 05:51 05/13/17 06:28 Librium - PO 05/13/17 23:01 50 mg [id number] BONNIE Administration Chlordiazepoxide HCl 25 mg 05/14/17 05:00 Librium - PO 05/14/17 23:01 [id number] [facility] Chlordiazepoxide HCl 15 mg 05/15/17 05:00 Librium - PO 05/15/17 23:01 [id number] [facility] Chlordiazepoxide HCl 25 mg 05/13/17 05:50 Librium - PO 05/16/17 05:49 Q4H PRN WITHDRAWAL(CONT SUBST) Chlorhexidine Gluconate 1 applic 05/13/17 22:00 Hibiclens For Decolonization - TP [facility] Heparin Sodium (Porcine) 5,000 unit 05/13/17 06:00 05/13/17 06:29 Heparin - SQ 5,000 unit TID [facility] Administration Dextrose/Sodium Chloride 1,000 mls @ 125 mls/hr 05/13/17 06:00 05/13/17 08:38 D5-1/2ns - IV 05/13/17 13:59 125 mls/hr ASDIR [facility] Administration Ibuprofen 400 mg 05/13/17 05:32 Motrin - PO Q6H PRN PAIN LEVEL 4-6 Lisinopril 20 mg 05/13/17 10:00 Prinivil PO DAILY [facility] Metoprolol Tartrate 25 mg 05/13/17 10:00 Lopressor - PO DAILY [facility] Mupirocin 1 applic 05/13/17 10:00 Bactroban Ointment (For Decolonization) - NS 05/18/17 09:59 BID [facility] Pantoprazole Sodium 40 mg 05/13/17 10:00 Protonix Iv IVPUSH DAILY [facility] Multivit/Folic Acid/Iron 1 tab 05/13/17 10:00 Vitamins (Sjr) - PO DAILY [facility] Thiamine HCl 100 mg 05/13/17 22:00 Vitamin B1 - PO [facility] Home Medications Medication Instructions Recorded Ascorbate Calcium [Vitamin C] 500 mg PO DAILY 03/22/17 Folic Acid 1 mg PO DAILY 03/22/17 Lisinopril 20 mg PO DAILY 03/22/17 Metoprolol Tartrate 25 mg PO DAILY 03/22/17 Multivitamin [One Daily] 1 each PO DAILY 03/22/17 Simvastatin 20 mg PO HS 03/22/17 Sertraline HCl [Zoloft] 150 mg PO DAILY #30 tablet 03/23/17 A/P: Patient is a 57 year old male with a past medical history of alcohol withdrawal , presents intoxicated and tremulous. Treat for alcohol withdrawal. #Alcohol withdrawal; CIWA score 14, s/p [place] bag, oN Librium porotocol, added Ativan prn 1mg, THIAMINE 200MG IV BID , folate/b 12 replacement qd #thrombocytopenia; DUE TO alcohol dependency continue to trend cbc #Elevated liver enzymes; AST> ALT; alcohol induced hepatitis, monitor CMPs #HTN: cont lisinopril/metolprolol #HLD: statin HS #peripheral numbness tingling in feet; chronic; check hemoglobin A1C #anxiety; hold xanax for now since patient is on Ativan and Librium #depression: stopped taking meds abruptly ; will hold for now until more stable DVT Px: SCDs , heparin is on hold due to thrombocytopenia Visit type - Emergency Visit Emergency Visit: Yes ED Registration Date: 05/13/17 Care time: The patient presented to the Emergency Department on the above date and was hospitalized for further evaluation of their emergent condition. - New Patient This patient is new to me today: Yes Date on this admission: 05/13/17 - Critical Care Critical Care patient: Yes Total Critical Care Time (in minutes): 35 Critical Care Statement: The care of this patient involved high complexity decision making to prevent further life threatening deterioration of the patient 's condition and/or to evaluate & treat vital organ system(s) failure or risk of failure. - Discharge Referral Referred to [facility] No
[2017-05-13 09:08] VITALS: BMI 37.2
[2017-05-13] MEDS ORDERED: LORazepam 2 MG/ML SDV VIAL IVPUSH ONE (09:10)
[2017-05-13] MEDS ORDERED: LORazepam 2 MG/ML SDV VIAL ONE (09:14)
--- NOTE | 2017-05-13 09:23 | CONSULT ---
Consult Consult Specialty:: PULM/CCM Referred by:: DILLON Reason for Consultation:: ETOH Withdrawal - History of Present Illness Chief Complaint: blacked out History of Present Illness: 57 M, chronic alcohol and substance abuse (K2), HTN, HTN, HLD, anxiety, and depression. Admitted via the ER after binge drinking for the past 2 weeks (2 bottles of wine per night) and subsequently "blacking out" last night. This is his reported first episode. Reports the feeling of anxiety, headache, tremors, and worsening of tingling in feet. No fever or chills. Seen in the ICU. Awake and alert and slightly tremulous. No report of seizure activity. Breathing is non-labored. - History Source History Provided By: Patient Limitations to Obtaining History: No Limitations - Alcohol/Substance Use Hx Alcohol Use: Yes - Smoking History Smoking history: Unknown if ever smoked Have you smoked in the past 12 months: No Home Medications - Allergies Allergies/Adverse Reactions: Allergies Allergy/AdvReac Type Severity Reaction Status Date / Time No Known Allergies Allergy Verified 05/12/17 19:54 - Home Medications Home Medications: Ambulatory Orders Ascorbate Calcium [Vitamin C] 500 mg PO DAILY 03/22/17 Folic Acid 1 mg PO DAILY 03/22/17 Lisinopril 20 mg PO DAILY 03/22/17 Metoprolol Tartrate 25 mg PO DAILY 03/22/17 Multivitamin [One Daily] 1 each PO DAILY 03/22/17 Simvastatin 20 mg PO HS 03/22/17 Sertraline HCl [Zoloft] 150 mg PO DAILY #30 tablet 03/23/17 Review of Systems - Review of Systems Constitutional: reports: Malaise, Weakness. denies: Chills, Fever, Loss of Appetite, Night Sweats Eyes: reports: No Symptoms HENT: reports: No Symptoms Neck: reports: No Symptoms Cardiovascular: denies: Chest Pain, Edema, Palpitations, Shortness of Breath Respiratory: reports: Snoring. denies: Cough, Hemoptysis, SOB, SOB on Exertion , Wheezing Gastrointestinal: reports: Indigestion, Nausea. denies: Abdominal Pain, Bloating, Constipation, Diarrhea, Melena, Rectal Bleeding, Vomiting, Vomiting Blood Genitourinary: reports: No Symptoms Breasts: reports: No Symptoms Reported Musculoskeletal: reports: No Symptoms Integumentary: reports: No Symptoms Neurological: reports: Syncope. denies: Change in Speech, Pre-Existing Deficit , Seizure Endocrine: reports: No Symptoms Hematology/Lymphatic: reports: No Symptoms Psychiatric: reports: Anxiety, Depression. denies: Suicidal Physical Exam Vital Signs: Vital Signs Temperature 99.8 F H 05/13/17 08:10 Pulse Rate 102 H 05/13/17 08:10 Respiratory Rate 18 05/13/17 08:10 Blood Pressure 166/89 05/13/17 08:10 O2 Sat by Pulse Oximetry (%) 95 05/13/17 05:17 Constitutional: Yes: Anxious Eyes: Yes: Conjunctiva Clear, EOM Intact HENT: Yes: Atraumatic, Normocephalic Neck: Yes: Supple, Trachea Midline Cardiovascular: Yes: Tachycardia Respiratory: Yes: CTA Bilaterally. No: Accessory Muscle Use, SOB, Stridor, Tachypnea, Wheezes Gastrointestinal: Yes: Normal Bowel Sounds, Soft, Abdomen, Obese ...Rectal Exam: No: Deferred Renal/: Yes: WNL Breast(s): Yes: WNL Musculoskeletal: Yes: WNL Extremities: Yes: WNL Edema: No Peripheral Pulses WNL: Yes Integumentary: Yes: WNL Neurological: Yes: WNL, Alert, Oriented, Tingling. No: Seizure ...Motor Strength: WNL Psychiatric: Yes: WNL, Alert, Oriented Labs: CBC, BMP 05/12/17 22:50 05/12/17 22:50 Imaging - Results Chest X-ray: Report Reviewed, Image Reviewed Problem List - Problems (1) Alcohol withdrawal Code(s): F10.239 - ALCOHOL DEPENDENCE WITH WITHDRAWAL, UNSPECIFIED (2) Alcohol abuse Code(s): F10.10 - ALCOHOL ABUSE, UNCOMPLICATED (3) Anxiety and depression Code(s): F41.8 - OTHER SPECIFIED ANXIETY DISORDERS (4) Anxiety Code(s): F41.9 - ANXIETY DISORDER, UNSPECIFIED (5) Depression Code(s): F32.9 - MAJOR DEPRESSIVE DISORDER, SINGLE EPISODE, UNSPECIFIED Qualifiers: Depression Type: unspecified Qualified Code(s): F32.9 - Major depressive disorder, single episode, unspecified (6) HTN (hypertension) Code(s): I10 - ESSENTIAL (PRIMARY) HYPERTENSION Qualifiers: Hypertension type: essential hypertension Qualified Code(s): I10 - Essential (primary) hypertension (7) Hypercholesteremia Code(s): E78.00 - PURE HYPERCHOLESTEROLEMIA, UNSPECIFIED Assessment/Plan IVF Librium protocol Addiction Medicine consult O2 as needed Seizure precautions Thiamine IVF Follow Tarun Clements Critical care time spent in reviewing chart, evaluating patient and formulating plan - 36 minutes.
[2017-05-13] MEDS: PANTOPRAZOLE SODIUM 40 MG VIAL IVPUSH SCH (09:29)
[2017-05-13] MEDS: PRENATAL VITAMINS W/ FOLIC ACID TABLET (FP) PO SCH (09:29)
[2017-05-13] MEDS: LISINOPRIL 20 MG TABLET (FP) PO SCH (09:37)
[2017-05-13] MEDS ORDERED: METOPROLOL TARTRATE 25 MG TABLET (FP) PO SCH (10:00)
[2017-05-13] MEDS: MUPIROCIN 2% TOPICAL OINTMENT FOR DECOLONIZATION NS SCH ×2 (10:43→22:04)
[2017-05-13] MEDS: THIAMINE HCL 200 MG/2 ML VIAL IVPB SCH ×2 (10:44→22:04)
[2017-05-13] MEDS: LORazepam 2 MG/ML SDV VIAL IVPUSH PRN ×2 (12:02→18:49)
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
[2017-05-13] MEDS: chlordiazePOXIDE HCL 25 MG CAPSULE PO PRN (14:42)
--- NOTE | 2017-05-13 18:40 | EKG ---
Test Reason : Blood Pressure : / mmHG Vent. Rate : 105 BPM Atrial Rate : 105 BPM P-R Int : 158 ms QRS Dur : 082 ms QT Int : 334 ms P-R-T Axes : 052 -65 049 degrees QTc Int : 441 ms SINUS TACHYCARDIA LEFT ANTERIOR FASCICULAR BLOCK ABNORMAL ECG WHEN COMPARED WITH ECG OF 23-MAR-2017 02:16, NO SIGNIFICANT CHANGE WAS FOUND Confirmed by SEGUNDO PITTMAN MD ([id number]) on 05/13/2017 6:40:38 PM Referred By: Confirmed By:SEGUNDO PITTMAN MD
[2017-05-13] MEDS ORDERED: PT OWN MED DRAWER 7, Y5N ONE (21:18)
[2017-05-13] MEDS ORDERED: THIAMINE HCL 100 MG TABLET (FP) PO SCH (22:00)
[2017-05-13] MEDS: ATORVASTATIN CA 10 MG TABLET (FP) PO SCH (22:03)
[2017-05-13] MEDS: CHLORHEXIDINE GLUCONATE 4% CLEANSER FOR DECOLONIZATION TP SCH (22:03)
[2017-05-14] MEDS: chlordiazePOXIDE HCL 25 MG CAPSULE PO SCH ×4 (04:56→22:43)
[2017-05-14] MEDS: HEPARIN NA (PORCINE) 5,000 UNITS/ML 1ML VIAL SQ SCH ×3 (05:41→22:42)
[2017-05-14 05:55] LABS: BASO % 0.2 % (0-2.0); EOS % 1.3 % (0-4.5); HEMATOCRIT 38.7 % (35.4-49); HEMOGLOBIN 13.4 GM/dL (11.7-16.9); LYMPH % 10.1 % (8-40); MCH 36.2 pg (25.7-33.7); MCHC 34.7 g/dl (32.0-35.9); MEAN CELL VOLUME 104.1 fl (80-96); MEAN PLT VOLUME 8.2 fl (7.5-11.1); MONO % 8.7 % (3.8-10.2); NEUT % 79.7 % (42.8-82.8); PLATELET COUNT 83 K/MM3 (134-434); RBC 3.72 M/mm3 (4.00-5.60); RDW 15.7 % (11.9-15.9); WHITE BLOOD COUNT 5.2 K/mm3 (4.0-10.0)
[2017-05-14 06:33] LABS: ALBUMIN 2.7 g/dl (3.4-5.0); BLOOD UREA NITROGEN 4 mg/dL (7-18); CALCIUM 7.6 mg/dL (8.5-10.1); CHLORIDE 99 mmol/L (98-107); POTASSIUM 3.3 mmol/L (3.5-5.1); SODIUM 138 mmol/L (136-145)
[2017-05-14 06:37] LABS: ALK PHOS 140 U/L (45-117); ANION GAP 12 (8-16); BILIRUBIN,TOTAL 1.4 mg/dL (0.2-1.0); CO2 27 mmol/L (21-32); CREATININE 0.7 mg/dL (0.7-1.3); GLUCOSE,RANDOM 90 mg/dL (74-106); MAGNESIUM 1.7 mg/dL (1.8-2.4); PHOSPHOROUS 3.2 mg/dL (2.5-4.9); SGOT/AST 74 U/L (15-37); SGPT/ALT 45 U/L (12-78); TOT PROT 6.1 g/dl (6.4-8.2)
[2017-05-14] MEDS ORDERED: POTASSIUM CHLORIDE TABS 20 MEQ TABLET.ER (FP) PO ONE (09:05)
--- NOTE | 2017-05-14 09:05 | CONSULT ---
Consult Detox [facility] Reason for Current Admission/Consult: substance use Referred by:: janet carpio - History History of Present Illness: 57 yo m was recently detoxed at [facility] from alcohol admitted to MICU with alcohol withdrawal sx, treated with libirum over weeeknd, no still tremulous with anxiety, depression andn insomnia. PMHX chronic alcohol and substance abuse (K2), HTN, HLD, anxiety, and depression. Reports binge drinking for the past 2 weeks (2 bottles of wine per night) and blackouts. no h/o seizures, no DTS, non SI at thsi time. - History Source History Provided By: Patient, Medical Record, Caregiver Limitations to Obtaining History: No Limitations - Alcohol/Substance Use Hx Alcohol Use: Yes (2 bottles o fwine daily) - Current Drug/Alcohol Use Alcohol Route: Oral Frequency: Daily Amount used: 2 bottles of wine Date of Last Use: 05/12/17 - Significant Medical Findings: 58 yo m with h/o chronic alcohoism, polysubstances ues, HTN, obsity, H:D amitted to icu with alcohol withdrwal sx after blacking out. still tremuolous after libirum detox CIWA Score - CIWA Score Nausea/Vomitin-Mild Nausea/No Vomiting Muscle Tremors: 3 Anxiety: 3 Agitation: 3 Paroxysmal Sweats: 3 Orientation: 0-Oriented Tacttile Disturbances: 1-Very Mild Itch/Numbness Auditory Disturbances: 0-None Visual Disturbances: 0-None Headache: 1-Very Mild CIWA-Ar Total Score: 15 Assessment Plan - Diagnosis (1) Blackout Status: Acute (2) Alcohol dependence with uncomplicated withdrawal Status: Acute (3) Anxiety and depression Status: Acute (4) Drug-induced mood disorder Status: Acute (5) HTN (hypertension) Status: Chronic Qualifiers: Hypertension type: essential hypertension Qualified Code(s): I10 - Essential (primary) hypertension (6) Hypercholesteremia Status: Chronic - Plan Plan: chart, imagain, labs reviewed. discusse care with medical team. Pateint examined and hisotry taken. Recommend: 1. complete inpatient alcohol detox with libirum 2. fluids, mvi 3. supplement k and mg as needed. 4. patient requesting outapatient rehab [facility] for aftercare after discharge. - Medication Detox Regimen/Protocol: Librium
[2017-05-14] MEDS ORDERED: MAGNESIUM SULF 50% (8.12 MEQ/2 ML-1 GM VIAL) IVPB ONE (09:37)
--- NOTE | 2017-05-14 09:37 | PN ---
Progress Note (short form) - Note Progress Note: \Patient seen and examined in the ICU. Awake and alert. Less tremulous. Says he slept well last night and he feels a little better. Feels less anxious. No CP or SOB. Constitutional: Yes: Less anxious, NAD Eyes: Yes: Conjunctiva Clear, EOM Intact HENT: Yes: Atraumatic, Normocephalic Neck: Yes: Supple, Trachea Midline Cardiovascular: Yes: S1S2 regular Respiratory: Yes: CTA Bilaterally. No: Accessory Muscle Use, SOB, Stridor, Tachypnea, Wheezes Gastrointestinal: Yes: Normal Bowel Sounds, Soft, Abdomen, Obese ...Rectal Exam: No: Deferred Renal/: Yes: WNL Breast(s): Yes: WNL Musculoskeletal: Yes: WNL Extremities: Yes: WNL Edema: No Peripheral Pulses WNL: Yes Integumentary: Yes: WNL Neurological: Yes: WNL, Alert, Oriented, Tingling. No: Seizure ...Motor Strength: WNL Psychiatric: Yes: WNL, Alert, Oriented Labs: Laboratory Results - last 24 hr 05/14/17 05/14/17 05/14/17 05:27 05:27 05:27 WBC 5.2 D RBC 3.72 L Hgb 13.4 D Hct 38.7 MCV 104.1 H MCH 36.2 H MCHC 34.7 RDW 15.7 Plt Count 83 L D MPV 8.2 Neutrophils % 79.7 Lymphocytes % 10.1 Monocytes % 8.7 Eosinophils % 1.3 D Basophils % 0.2 Sodium 138 Potassium 3.3 L Chloride 99 Carbon Dioxide 27 D Anion Gap 12 BUN 4 L D Creatinine 0.7 Creat Clearance w eGFR > 60 Random Glucose 90 Hemoglobin A1c % 5.3 Calcium 7.6 L Phosphorus 3.2 Magnesium 1.7 L Total Bilirubin 1.4 H D AST 74 H D ALT 45 D Alkaline Phosphatase 140 H Total Protein 6.1 L Albumin 2.7 L Problem List - Problems (1) Alcohol withdrawal Code(s): F10.239 - ALCOHOL DEPENDENCE WITH WITHDRAWAL, UNSPECIFIED (2) Alcohol abuse Code(s): F10.10 - ALCOHOL ABUSE, UNCOMPLICATED (3) Anxiety and depression Code(s): F41.8 - OTHER SPECIFIED ANXIETY DISORDERS (4) Anxiety Code(s): F41.9 - ANXIETY DISORDER, UNSPECIFIED (5) Depression Code(s): F32.9 - MAJOR DEPRESSIVE DISORDER, SINGLE EPISODE, UNSPECIFIED Qualifiers: Depression Type: unspecified Qualified Code(s): F32.9 - Major depressive disorder, single episode, unspecified (6) HTN (hypertension) Code(s): I10 - ESSENTIAL (PRIMARY) HYPERTENSION Qualifiers: Hypertension type: essential hypertension Qualified Code(s): I10 - Essential (primary) hypertension (7) Hypercholesteremia Code(s): E78.00 - PURE HYPERCHOLESTEROLEMIA, UNSPECIFIED Assessment/Plan IVF Replete lytes Librium protocol Addiction Medicine consult noted O2 as needed Seizure precautions Thiamine Floor Dr Clements Critical care time spent in reviewing chart, evaluating patient and formulating plan - 36 minutes. Problem List - Problems (1) Alcohol withdrawal Code(s): F10.239 - ALCOHOL DEPENDENCE WITH WITHDRAWAL, UNSPECIFIED (2) Alcohol abuse Code(s): F10.10 - ALCOHOL ABUSE, UNCOMPLICATED (3) Anxiety and depression Code(s): F41.8 - OTHER SPECIFIED ANXIETY DISORDERS (4) Anxiety Code(s): F41.9 - ANXIETY DISORDER, UNSPECIFIED (5) Depression Code(s): F32.9 - MAJOR DEPRESSIVE DISORDER, SINGLE EPISODE, UNSPECIFIED Qualifiers: Depression Type: unspecified Qualified Code(s): F32.9 - Major depressive disorder, single episode, unspecified (6) HTN (hypertension) Code(s): I10 - ESSENTIAL (PRIMARY) HYPERTENSION Qualifiers: Hypertension type: essential hypertension Qualified Code(s): I10 - Essential (primary) hypertension (7) Hypercholesteremia Code(s): E78.00 - PURE HYPERCHOLESTEROLEMIA, UNSPECIFIED
[2017-05-14] MEDS ORDERED: ZOLPIDEM TARTRATE 5 MG TABLET PO PRN (09:39)
[2017-05-14] MEDS ORDERED: metoPROLOL SUCCINATE 25 MG TAB.SR.24H (FP) PO SCH (10:00)
--- NOTE | 2017-05-14 10:02 | PN ---
Physical Exam: SUBJECTIVE: Patient seen and examined, still feeling anxious, mild nausea, no hallucinations or tactile disturbances. was able to eat breakfast fully OBJECTIVE: Vital Signs Period Temp Pulse Resp BP Sys/Ortiz Pulse Ox Last 24 Hr 97.6 F-99.8 F 83-106 18-23 113-172/55-92 95-95 GENERAL: The patient is awake, alert, and fully oriented, in no acute distress. HEAD: Normal with no signs of trauma. EYES: PERRL, extraocular movements intact, sclera anicteric, conjunctiva clear. No ptosis. ENT: Ears normal, nares patent, oropharynx clear without exudates, moist mucous membranes. NECK: Trachea midline, full range of motion, supple. LUNGS: Breath sounds equal, clear to auscultation bilaterally, no wheezes, no crackles, no accessory muscle use. HEART: Regular rate and rhythm, S1, S2 without murmur, rub or gallop. ABDOMEN: Soft, nontender, nondistended, normoactive bowel sounds, no guarding, no rebound, no hepatosplenomegaly, no masses. EXTREMITIES: 2+ pulses, warm, well-perfused, no edema. NEUROLOGICAL: Cranial nerves II through XII grossly intact. Normal speech, gait not observed. PSYCH: Normal mood, normal affect. SKIN: Warm, dry, normal turgor, no rashes or lesions noted Laboratory Results - last 24 hr 05/14/17 05/14/17 05/14/17 05:27 05:27 05:27 WBC 5.2 D RBC 3.72 L Hgb 13.4 D Hct 38.7 MCV 104.1 H MCH 36.2 H MCHC 34.7 RDW 15.7 Plt Count 83 L D MPV 8.2 Neutrophils % 79.7 Lymphocytes % 10.1 Monocytes % 8.7 Eosinophils % 1.3 D Basophils % 0.2 Sodium 138 Potassium 3.3 L Chloride 99 Carbon Dioxide 27 D Anion Gap 12 BUN 4 L D Creatinine 0.7 Creat Clearance w eGFR > 60 Random Glucose 90 Hemoglobin A1c % 5.3 Calcium 7.6 L Phosphorus 3.2 Magnesium 1.7 L Total Bilirubin 1.4 H D AST 74 H D ALT 45 D Alkaline Phosphatase 140 H Total Protein 6.1 L Albumin 2.7 L Active Medications Generic Name Dose Route Start Last Admin Trade Name Freq PRN Reason Stop Dose Admin Atorvastatin Calcium 10 mg 05/13/17 22:00 05/13/17 22:03 Lipitor - PO 10 mg HS BONNIE Administration Chlordiazepoxide HCl 25 mg 05/14/17 05:00 05/14/17 04:56 Librium - PO 05/14/17 23:01 25 mg [id number] BONNIE Administration Chlordiazepoxide HCl 15 mg 05/15/17 05:00 Librium - PO 05/15/17 23:01 [id number] BONNIE Chlordiazepoxide HCl 25 mg 05/13/17 05:50 05/13/17 14:42 Librium - PO 05/16/17 05:49 25 mg Q4H PRN Administration WITHDRAWAL(CONT SUBST) Chlorhexidine Gluconate 1 applic 05/13/17 22:00 05/13/17 22:03 Hibiclens For Decolonization - TP 1 applic HS BONNIE Administration Heparin Sodium (Porcine) 5,000 unit 05/13/17 06:00 05/14/17 05:41 Heparin - SQ 5,000 unit TID BONNIE Administration MAGNESIUM SULFATE IN WATER 2 gm in 50 mls @ 50 mls/hr 05/14/17 11:00 Magnesium Sulf 2 G/50 Ml Bag IVPB 05/14/17 11:59 ONCE ONE Lisinopril 20 mg 05/13/17 10:00 05/13/17 09:37 Prinivil PO 20 mg DAILY PENDING SALE TO [facility] Administration Magnesium Oxide 400 mg 05/14/17 10:00 Mag-Ox - PO 05/16/17 22:01 BID PENDING SALE TO [facility] Metoprolol Succinate 25 mg 05/14/17 10:00 Toprol Xl - PO DAILY PENDING SALE TO [facility] Mupirocin 1 applic 05/13/17 10:00 05/13/17 22:04 Bactroban Ointment (For Decolonization) - NS 05/18/17 09:59 1 applic BID BONNIE Administration Pantoprazole Sodium 40 mg 05/13/17 10:00 05/13/17 09:29 Protonix Iv IVPUSH 40 mg DAILY PENDING S[facility] TO [facility] Administration Potassium Chloride 40 meq 05/14/17 11:00 K-Dur - PO 05/14/17 13:01 Q2H PENDING SALE TO [facility] Multivit/Folic Acid/Iron 1 tab 05/13/17 10:00 05/13/17 09:29 Vitamins (Sjr) - PO 1 tab DAILY PENDING SALE TO [facility] Administration Thiamine HCl 100 mg 05/14/17 10:30 Vitamin B1 - PO 05/14/17 10:31 ONCE ONE Zolpidem Tartrate 10 mg 05/14/17 09:39 Ambien - PO HS PRN INSOMNIA ASSESSMENT/PLAN: 57M with ETOH intoxication and subsequent withdrawl current CIWA of 9, improving continue librium taper ativan prn vitamin and electrolyte repletion for hypokalemia and hypomagnesemia IVF Problem List - Problems (1) Alcohol dependence with uncomplicated withdrawal Code(s): F10.230 - ALCOHOL DEPENDENCE WITH WITHDRAWAL, UNCOMPLICATED (2) Anxiety Code(s): F41.9 - ANXIETY DISORDER, UNSPECIFIED Visit type - Emergency Visit Emergency Visit: Yes ED Registration Date: 05/13/17 Care time: The patient presented to the Emergency Department on the above date and was hospitalized for further evaluation of their emergent condition. - New Patient This patient is new to me today: Yes Date on this admission: 05/14/17 - Critical Care Critical Care patient: No
[2017-05-14] MEDS: LISINOPRIL 20 MG TABLET (FP) PO SCH (10:04)
[2017-05-14] MEDS: PRENATAL VITAMINS W/ FOLIC ACID TABLET (FP) PO SCH (10:04)
[2017-05-14] MEDS: PANTOPRAZOLE SODIUM 40 MG VIAL IVPUSH SCH (10:04)
[2017-05-14] MEDS: MAGNESIUM OXIDE 400 MG TABLET (FP) PO SCH ×2 (10:11→22:43)
[2017-05-14] MEDS: POTASSIUM CHLORIDE TABS 20 MEQ TABLET.ER (FP) PO SCH ×2 (10:11→13:40)
[2017-05-14] MEDS: chlordiazePOXIDE HCL 25 MG CAPSULE PO PRN (10:12)
[2017-05-14] MEDS: MUPIROCIN 2% TOPICAL OINTMENT FOR DECOLONIZATION NS SCH ×2 (10:12→22:43)
[2017-05-14] MEDS ORDERED: THIAMINE HCL 100 MG TABLET (FP) PO ONE (10:30)
[2017-05-14] MEDS ORDERED: MAGNESIUM SULFATE IN WATER 2 GM/50 ML IVPB IVPB ONE (11:00)
[2017-05-14] MEDS ORDERED: LORazepam 2 MG/ML SDV VIAL ONE (12:04)
[2017-05-14] MEDS ORDERED: LORazepam 2 MG/ML SDV VIAL IVPUSH ONE (14:00)
[2017-05-14] MEDS ORDERED: cloNIDine HCL 0.1 MG TABLET PO SCH (22:00)
[2017-05-14] MEDS: ATORVASTATIN CA 10 MG TABLET (FP) PO SCH (22:43)
[2017-05-14] MEDS: CHLORHEXIDINE GLUCONATE 4% CLEANSER FOR DECOLONIZATION TP SCH (22:43)
[2017-05-14] MEDS: LORazepam 2 MG/ML SDV VIAL IVPUSH PRN (22:53)
[2017-05-15] MEDS ORDERED: chlordiazePOXIDE 5 MG CAPSULE PO SCH ×3 (05:00→17:00)
[2017-05-15] MEDS: HEPARIN NA (PORCINE) 5,000 UNITS/ML 1ML VIAL SQ SCH (05:13)
[2017-05-15] MEDS: LORazepam 2 MG/ML SDV VIAL IVPUSH PRN (08:25)
[2017-05-15 09:03] LABS: BASO % 0.4 % (0-2.0); EOS % 1.9 % (0-4.5); HEMATOCRIT 40.4 % (35.4-49); HEMOGLOBIN 13.7 GM/dL (11.7-16.9); LYMPH % 11.7 % (8-40); MCH 35.7 pg (25.7-33.7); MCHC 33.9 g/dl (32.0-35.9); MEAN CELL VOLUME 105.2 fl (80-96); MEAN PLT VOLUME 8.6 fl (7.5-11.1); MONO % 7.9 % (3.8-10.2); NEUT % 78.1 % (42.8-82.8); PLATELET COUNT 73 K/MM3 (134-434); RBC 3.84 M/mm3 (4.00-5.60); WHITE BLOOD COUNT 5.5 K/mm3 (4.0-10.0)
[2017-05-15] MEDS ORDERED: ZOLPIDEM TARTRATE 5 MG TABLET PO PRN (09:14)
[2017-05-15] MEDS ORDERED: chlordiazePOXIDE HCL 25 MG CAPSULE PO PRN ×2 (09:14→16:01)
[2017-05-15 09:31] LABS: ALBUMIN 2.9 g/dl (3.4-5.0); ANION GAP 9 (8-16); BLOOD UREA NITROGEN 5 mg/dL (7-18); CALCIUM 7.7 mg/dL (8.5-10.1); CHLORIDE 105 mmol/L (98-107); CO2 24 mmol/L (21-32); GLUCOSE,RANDOM 100 mg/dL (74-106); POTASSIUM 3.7 mmol/L (3.5-5.1); SODIUM 138 mmol/L (136-145)
[2017-05-15 09:36] LABS: ALK PHOS 146 U/L (45-117); BILIRUBIN,TOTAL 1.4 mg/dL (0.2-1.0); CREATININE 0.6 mg/dL (0.7-1.3); SGOT/AST 93 U/L (15-37); SGPT/ALT 52 U/L (12-78); TOT PROT 6.1 g/dl (6.4-8.2)
[2017-05-15] MEDS ORDERED: PANTOPRAZOLE SODIUM 40 MG VIAL IVPUSH SCH (10:00)
[2017-05-15] MEDS ORDERED: MUPIROCIN 2% TOPICAL OINTMENT FOR DECOLONIZATION NS SCH (10:00)
[2017-05-15] MEDS ORDERED: LISINOPRIL 20 MG TABLET (FP) PO SCH (10:00)
[2017-05-15] MEDS ORDERED: PRENATAL VITAMINS W/ FOLIC ACID TABLET (FP) PO SCH (10:00)
[2017-05-15] MEDS ORDERED: MAGNESIUM OXIDE 400 MG TABLET (FP) PO SCH ×2 (10:00→22:00)
[2017-05-15] MEDS ORDERED: metoPROLOL SUCCINATE 25 MG TAB.SR.24H (FP) PO SCH (10:00)
[2017-05-15] MEDS ORDERED: PT OWN MED DRAWER 7, Y5N ONE (10:28)
--- NOTE | 2017-05-15 12:20 | PN ---
Teaching Attending Note Name of Resident: Kamala Angel ATTENDING PHYSICIAN STATEMENT I saw and evaluated the patient. I reviewed the resident's note and discussed the case with the resident. I agree with the resident's findings and plan as documented. SUBJECTIVE: Patient seen and examined in the ICU. Awake and alert. Still slightly tremulous. Reports that he again slept well last night and he feels a little better. Still anxious, but slightly better. No CP or SOB. Intake & Output 05/12/17 05/13/17 05/14/17 05/15/17 23:59 23:59 23:59 23:59 Intake Total 3650 3750 100 Output Total 1000 1400 Balance 2650 2350 100 Weight 200 lb 306 lb 10.608 oz 311 lb 6.4 oz Last Vital Signs Temp Pulse Resp BP Pulse Ox 98.6 F 97 H 20 148/81 95 05/15/17 10:00 05/15/17 10:00 05/15/17 10:00 05/15/17 10:00 05/14/17 20:55 Active Medications Atorvastatin Calcium (Lipitor -) [address] [facility] Chlordiazepoxide HCl (Librium -) 25 mg PO Q4H PRN PRN Reason: WITHDRAWAL(CONT SUBST) Stop: 05/16/17 05:49 Chlordiazepoxide HCl (Librium -) 15 [address] [id number] [facility] Stop: 05/15/17 17:01 Last Admin: 05/15/17 10:32 Dose: 15 mg Chlorhexidine Gluconate (Hibiclens For Decolonization -) [address] [facility] Heparin Sodium (Porcine) (Heparin -) 5,[address] [facility] Lisinopril (Prinivil) [address] [facility] Last Admin: 05/15/17 10:31 Dose: 20 mg Lorazepam (Ativan Injection -) 2 mg IVPUSH TID PRN PRN Reason: WITHDRAWAL(CONT SUBST) Stop: 05/15/17 17:28 Last Admin: 05/15/17 08:25 Dose: 2 mg Magnesium Oxide (Mag-Ox -) [address] [facility] Stop: 05/15/17 22:01 Last Admin: 05/15/17 10:31 Dose: 400 mg Metoprolol Succinate (Toprol Xl -) [address] [facility] Last Admin: 05/15/17 10:32 Dose: 25 mg Mupirocin (Bactroban Ointment (For Decolonization) -) [address] [facility] Stop: 05/18/17 09:59 Last Admin: 05/15/17 10:37 Dose: 1 applic Pantoprazole Sodium (Protonix Iv) [address] [facility] Last Admin: 05/15/17 10:31 Dose: 40 mg Multivit/Folic Acid/Iron ( Vitamins (Sjr) -) [address] [facility] Last Admin: 05/15/17 10:31 Dose: 1 tab Zolpidem Tartrate (Ambien -) 10 mg PO HS PRN PRN Reason: INSOMNIA Constitutional: Yes: Less anxious, NAD Eyes: Yes: Conjunctiva Clear, EOM Intact HENT: Yes: Atraumatic, Normocephalic Neck: Yes: Supple, Trachea Midline Cardiovascular: Yes: S1S2 regular Respiratory: Yes: CTA Bilaterally. No: Accessory Muscle Use, SOB, Stridor, Tachypnea, Wheezes Gastrointestinal: Yes: Normal Bowel Sounds, Soft, Abdomen, Obese ...Rectal Exam: No: Deferred Renal/: Yes: WNL Breast(s): Yes: WNL Musculoskeletal: Yes: WNL Extremities: Yes: WNL Edema: No Peripheral Pulses WNL: Yes Integumentary: Yes: WNL Neurological: Yes: WNL, Alert, Oriented, Tingling. No: Seizure ...Motor Strength: WNL Psychiatric: Yes: WNL, Alert, Oriented Labs: Laboratory Results - last 24 hr 05/14/17 05/15/17 05/15/17 05:27 08:45 08:45 WBC 5.5 RBC 3.84 L Hgb 13.7 Hct 40.4 MCV 105.2 H MCH 35.7 H MCHC 33.9 RDW 16.0 H Plt Count 73 L MPV 8.6 Neutrophils % 78.1 Lymphocytes % 11.7 Monocytes % 7.9 Eosinophils % 1.9 Basophils % 0.4 Sodium 138 Potassium 3.7 Chloride 105 Carbon Dioxide 24 Anion Gap 9 BUN 5 L D Creatinine 0.6 L Creat Clearance w eGFR > 60 Random Glucose 100 Calcium 7.7 L Magnesium Total Bilirubin 1.4 H AST 93 H D ALT 52 Alkaline Phosphatase 146 H Total Protein 6.1 L Albumin 2.9 L HIV 1&2 Antibody Screen Negative HIV P24 Antigen Negative 05/15/17 08:45 WBC RBC Hgb Hct MCV MCH MCHC RDW Plt Count MPV Neutrophils % Lymphocytes % Monocytes % Eosinophils % Basophils % Sodium Potassium Chloride Carbon Dioxide Anion Gap BUN Creatinine Creat Clearance w eGFR Random Glucose Calcium Magnesium 1.9 Total Bilirubin AST ALT Alkaline Phosphatase Total Protein Albumin HIV 1&2 Antibody Screen HIV P24 Antigen Problem List - Problems (1) Alcohol withdrawal Code(s): F10.239 - ALCOHOL DEPENDENCE WITH WITHDRAWAL, UNSPECIFIED (2) Alcohol abuse Code(s): F10.10 - ALCOHOL ABUSE, UNCOMPLICATED (3) Anxiety and depression Code(s): F41.8 - OTHER SPECIFIED ANXIETY DISORDERS (4) Anxiety Code(s): F41.9 - ANXIETY DISORDER, UNSPECIFIED (5) Depression Code(s): F32.9 - MAJOR DEPRESSIVE DISORDER, SINGLE EPISODE, UNSPECIFIED Qualifiers: Depression Type: unspecified Qualified Code(s): F32.9 - Major depressive disorder, single episode, unspecified (6) HTN (hypertension) Code(s): I10 - ESSENTIAL (PRIMARY) HYPERTENSION Qualifiers: Hypertension type: essential hypertension Qualified Code(s): I10 - Essential (primary) hypertension (7) Hypercholesteremia Code(s): E78.00 - PURE HYPERCHOLESTEROLEMIA, UNSPECIFIED Assessment/Plan IVF Replete lytes Librium protocol Addiction Medicine consult noted O2 as needed Seizure precautions Thiamine Floor Dr Clements Critical care time spent in reviewing chart, evaluating patient and formulating plan - 36 minutes. Problem List - Problems (1) Alcohol withdrawal Code(s): F10.239 - ALCOHOL DEPENDENCE WITH WITHDRAWAL, UNSPECIFIED (2) Alcohol abuse Code(s): F10.10 - ALCOHOL ABUSE, UNCOMPLICATED (3) Anxiety and depression Code(s): F41.8 - OTHER SPECIFIED ANXIETY DISORDERS (4) Anxiety Code(s): F41.9 - ANXIETY DISORDER, UNSPECIFIED (5) Depression Code(s): F32.9 - MAJOR DEPRESSIVE DISORDER, SINGLE EPISODE, UNSPECIFIED Qualifiers: Depression Type: unspecified Qualified Code(s): F32.9 - Major depressive disorder, single episode, unspecified (6) HTN (hypertension) Code(s): I10 - ESSENTIAL (PRIMARY) HYPERTENSION Qualifiers: Hypertension type: essential hypertension Qualified Code(s): I10 - Essential (primary) hypertension (7) Hypercholesteremia Code(s): E78.00 - PURE HYPERCHOLESTEROLEMIA, UNSPECIFIED
[2017-05-15] MEDS ORDERED: PNEUMOC 13-VAL CONJ-DIP CRM/PF 0.5 ML DISP.SYRIN IM ONE (12:48)
[2017-05-15] MEDS ORDERED: THIAMINE HCL 100 MG TABLET (FP) PO SCH (13:00)
--- NOTE | 2017-05-15 13:11 | PN ---
Physical Exam: SUBJECTIVE: Patient seen and examined in the ICU. Pt is slightly tremulous and anxious, but reports feeling better after a good night's sleep. Pt denies fever , chills, chest pain, headache, sob, abdominal pain. No events overnight. OBJECTIVE: Vital Signs Period Temp Pulse Resp BP Sys/Ortiz Pulse Ox Last 24 Hr 97.4 F-98.6 F 67-100 18-26 126-170/66-94 95 GENERAL: The patient is awake, alert, and fully oriented, in no acute distress. LUNGS: Breath sounds equal, clear to auscultation bilaterally, no wheezes, no crackles, no accessory muscle use. HEART: Regular rate and rhythm, S1, S2 without murmur, rub or gallop. ABDOMEN: Soft, nontender, nondistended, no guarding. EXTREMITIES: Warm, well-perfused, no edema. NEUROLOGICAL: AAOx3. No seizure. Cranial nerves II through XII grossly intact. Normal speech. PSYCH: Normal mood, normal affect. SKIN: Warm, dry, normal turgor, no rashes or lesions noted Laboratory Results - last 24 hr 05/15/17 05/15/17 05/15/17 08:45 08:45 08:45 WBC 5.5 RBC 3.84 L Hgb 13.7 Hct 40.4 MCV 105.2 H MCH 35.7 H MCHC 33.9 RDW 16.0 H Plt Count 73 L MPV 8.6 Neutrophils % 78.1 Lymphocytes % 11.7 Monocytes % 7.9 Eosinophils % 1.9 Basophils % 0.4 Sodium 138 Potassium 3.7 Chloride 105 Carbon Dioxide 24 Anion Gap 9 BUN 5 L D Creatinine 0.6 L Creat Clearance w eGFR > 60 Random Glucose 100 Calcium 7.7 L Magnesium 1.9 Total Bilirubin 1.4 H AST 93 H D ALT 52 Alkaline Phosphatase 146 H Total Protein 6.1 L Albumin 2.9 L Active Medications Generic Name Dose Route Start Last Admin Trade Name Freq PRN Reason Stop Dose Admin Atorvastatin Calcium 10 mg 05/15/17 22:00 Lipitor - PO HS BONNIE Chlordiazepoxide HCl 25 mg 05/15/17 09:14 Librium - PO 05/16/17 05:49 Q4H PRN WITHDRAWAL(CONT SUBST) Chlordiazepoxide HCl 15 mg 05/15/17 11:00 05/15/17 10:32 Librium - PO 05/15/17 17:01 15 mg [id number] BONNIE Administration Chlorhexidine Gluconate 1 applic 05/15/17 22:00 Hibiclens For Decolonization - TP HS BONNIE Heparin Sodium (Porcine) 5,000 unit 05/15/17 14:00 Heparin - SQ TID BONNIE Lisinopril 20 mg 05/15/17 10:00 05/15/17 10:31 Prinivil PO 20 mg DAILY BONNIE Administration Lorazepam 2 mg 05/14/17 17:29 05/15/17 08:25 Ativan Injection - IVPUSH 05/15/17 17:28 2 mg TID PRN Administration WITHDRAWAL(CONT SUBST) Magnesium Oxide 400 mg 05/15/17 10:00 05/15/17 10:31 Mag-Ox - PO 05/15/17 22:01 400 mg BID BONNIE Administration Metoprolol Succinate 25 mg 05/15/17 10:00 05/15/17 10:32 Toprol Xl - PO 25 mg DAILY BONNIE Administration Mupirocin 1 applic 05/15/17 10:00 05/15/17 10:37 Bactroban Ointment (For Decolonization) - NS 05/18/17 09:59 1 applic BID BONNIE Administration Pantoprazole Sodium 40 mg 05/15/17 10:00 05/15/17 10:31 Protonix Iv IVPUSH 40 mg DAILY BONNIE Administration Pneumococcal 13-Valent Conj Vacc 0.5 ml 05/15/17 12:48 Prevnar 13 Syringe - IM 05/15/17 12:49 .ONCE ONE Multivit/Folic Acid/Iron 1 tab 05/15/17 10:00 05/15/17 10:31 Vitamins (Sjr) - PO 1 tab DAILY BONNIE Administration Zolpidem Tartrate 10 mg 05/15/17 09:14 Ambien - PO HS PRN INSOMNIA ASSESSMENT/PLAN: 57M with PMH of alcohol abuse, htn, hld, anxiety, depression, presented for alcohol withdrawal, admitted to ICU for close monitoring of withdrawal. # alcohol withdrawal - Detox Consult - Librium protocol - banana bag x 1 today - continue Thiamine, folic acid, MVI - continue Ativan prn, Ambien prn - CIWA = 3 # htn - continue home meds of Metoprolol and Lisinopril # hld - continue Lipitor # FEN - Fluids: po + banana bag - Electrolytes: wnl, continue to monitor - Nutrition: regular diet # Prophylaxis - DVT ppx with aniceto SCDs, hold Heparin 2/2 thrombocytopenia - GI ppx with Protonix IVpush daily # [facility] type - Emergency Visit Emergency Visit: Yes ED Registration Date: 05/13/17 Care time: The patient presented to the Emergency Department on the above date and was hospitalized for further evaluation of their emergent condition. - New Patient This patient is new to me today: Yes Date on this admission: 05/15/17 - Critical Care Critical Care patient: Yes Total Critical Care Time (in minutes): 40 Critical Care Statement: The care of this patient involved high complexity decision making to prevent further life threatening deterioration of the patient 's condition and/or to evaluate & treat vital organ system(s) failure or risk of failure.
[2017-05-15] MEDS ORDERED: FOLIC ACID INJECTION - 1 MG, THIAMINE HCL 100 MG, MULTIVIT INJECTION ADULT 10 ML in SOD... IVPB ONE (14:00)
[2017-05-15] MEDS ORDERED: HEPARIN NA (PORCINE) 5,000 UNITS/ML 1ML VIAL SQ SCH ×2 (14:00→22:00)
[2017-05-15] MEDS: FOLIC ACID 1 MG TABLET (FP) PO SCH (14:22)
[2017-05-15] MEDS ORDERED: PNEUMOCOCCAL 23 VACCINE 0.5 ML VIAL IM ONE (14:30)
[2017-05-15] MEDS ORDERED: LORazepam 2 MG/ML SDV VIAL IVPUSH PRN (16:01)
--- NOTE | 2017-05-15 16:56 | PN ---
Teaching Attending Note Name of Resident: Tejas Rhoades ATTENDING PHYSICIAN STATEMENT I saw and evaluated the patient. I reviewed the resident's note and discussed the case with the resident. I agree with the resident's findings and plan as documented. SUBJECTIVE: Patient feels shaky. OBJECTIVE: Vital Signs Period Temp Pulse Resp BP Sys/Ortiz Pulse Ox Last 24 Hr 97.4 F-99.3 F 67-100 18-26 125-170/54-94 95 HEART: S1S2, RRR LUNGS: Clear ABDOMEN: Obese, soft, non-tender, non-distended, normal BS EXTREMITIES: No edema Laboratory Results - last 24 hr 05/15/17 05/15/17 05/15/17 08:45 08:45 08:45 WBC 5.5 RBC 3.84 L Hgb 13.7 Hct 40.4 MCV 105.2 H MCH 35.7 H MCHC 33.9 RDW 16.0 H Plt Count 73 L MPV 8.6 Neutrophils % 78.1 Lymphocytes % 11.7 Monocytes % 7.9 Eosinophils % 1.9 Basophils % 0.4 Sodium 138 Potassium 3.7 Chloride 105 Carbon Dioxide 24 Anion Gap 9 BUN 5 L D Creatinine 0.6 L Creat Clearance w eGFR > 60 Random Glucose 100 Calcium 7.7 L Magnesium 1.9 Total Bilirubin 1.4 H AST 93 H D ALT 52 Alkaline Phosphatase 146 H Total Protein 6.1 L Albumin 2.9 L Current Medications Generic Name Dose Route Start Last Admin Trade Name Freq PRN Reason Stop Dose Admin Atorvastatin Calcium 10 mg 05/15/17 22:00 Lipitor - PO HS BONNIE Chlordiazepoxide HCl 25 mg 05/15/17 16:01 Librium - PO 05/16/17 05:49 Q4H PRN WITHDRAWAL(CONT SUBST) Chlordiazepoxide HCl 15 mg 05/15/17 17:00 Librium - PO 05/15/17 17:01 [id number] BONNIE Folic Acid 1 mg 05/15/17 13:15 05/15/17 14:22 Folic Acid - PO 1 mg DAILY BONNIE Administration Heparin Sodium (Porcine) 5,000 unit 05/15/17 22:00 Heparin - SQ TID BONNIE Folic Acid 1 mg/ Thiamine HCl 1,000 mls @ 125 mls/hr 05/15/17 14:00 05/15/17 16:32 100 mg/ Multivitamins/Minerals IVPB 05/15/17 21:59 125 mls/hr 10 ml/ Sodium Chloride ONCE ONE Administration Lisinopril 20 mg 05/16/17 10:00 Prinivil PO DAILY [facility] Lorazepam 2 mg 05/15/17 16:01 Ativan Injection - IVPUSH 05/15/17 17:28 TID PRN WITHDRAWAL(CONT SUBST) Magnesium Oxide 400 mg 05/15/17 22:00 Mag-Ox - PO 05/15/17 22:01 BID [facility] Metoprolol Succinate 25 mg 05/16/17 10:00 Toprol Xl - PO DAILY [facility] Pantoprazole Sodium 40 mg 05/16/17 10:00 Protonix Iv IVPUSH DAILY [facility] Multivit/Folic Acid/Iron 1 tab 05/16/17 10:00 Vitamins (Sjr) - PO DAILY [facility] Thiamine HCl 100 mg 05/15/17 13:00 05/15/17 14:22 Vitamin B1 - PO 100 mg DAILY [facility] Administration Zolpidem Tartrate 10 mg 05/15/17 16:01 Ambien - PO HS PRN INSOMNIA ASSESSMENT AND PLAN: This is a 57 year old man with a history of HTN, hyperlipidemia, anxiety, depression, alcohol abuse who presented to the ED with anxiety, tremors, sweats and headache. 1. Alcohol withdrawal, uncomplicated - Continue Librium detox 2. Continuous alcohol dependence - Continue multivitamin, thiamin, folic acid 3. Thrombocytopenia secondary to alcohol - Continue to monitor platelets 4. Alcoholic hepatitis - LFTs improving 5. Hypocalemia - Corrected calcium is 8.6 6. Hypomagnesemia - Continue MagOx 7. HTN - Continue Toprol XL, Lisinopril 8. Hyperlipidemia - Continue Lipitor 9. Anxiety and depression
[2017-05-15] MEDS ORDERED: chlordiazePOXIDE HCL 25 MG CAPSULE PO ONE (19:10)
--- NOTE | 2017-05-15 20:06 | PN ---
Physical Exam: SUBJECTIVE: Patient seen and examined at bedside. Patient feels much better today than on admission. Still complains of mild tremors. Patient denies auditory, visual or tactile hallucinations. OBJECTIVE: Vital Signs Period Temp Pulse Resp BP Sys/Ortiz Pulse Ox Last 24 Hr 97.4 F-99.3 F 67-100 18-24 125-170/54-94 95-96 GENERAL: The patient is awake, alert, and fully oriented, in no acute distress. NECK: Trachea midline, full range of motion, supple. LUNGS: Breath sounds equal, clear to auscultation bilaterally, no wheezes, no crackles, no accessory muscle use. HEART: Regular rate and rhythm, S1, S2 without murmur, rub or gallop. ABDOMEN: Soft, nontender, nondistended, normoactive bowel sounds, no guarding, no rebound, no hepatosplenomegaly, no masses. EXTREMITIES: 2+ pulses, warm, well-perfused, no edema. Moderate course tremor observed NEUROLOGICAL: Cranial nerves II through X grossly intact. Normal speech, gait not observed. SKIN: Warm, dry, normal turgor, no rashes or lesions noted. No diaphoresis Laboratory Results - last 24 hr 05/15/17 05/15/17 05/15/17 08:45 08:45 08:45 WBC 5.5 RBC 3.84 L Hgb 13.7 Hct 40.4 MCV 105.2 H MCH 35.7 H MCHC 33.9 RDW 16.0 H Plt Count 73 L MPV 8.6 Neutrophils % 78.1 Lymphocytes % 11.7 Monocytes % 7.9 Eosinophils % 1.9 Basophils % 0.4 Sodium 138 Potassium 3.7 Chloride 105 Carbon Dioxide 24 Anion Gap 9 BUN 5 L D Creatinine 0.6 L Creat Clearance w eGFR > 60 Random Glucose 100 Calcium 7.7 L Magnesium 1.9 Total Bilirubin 1.4 H AST 93 H D ALT 52 Alkaline Phosphatase 146 H Total Protein 6.1 L Albumin 2.9 L Active Medications Generic Name Dose Route Start Last Admin Trade Name Freq PRN Reason Stop Dose Admin Atorvastatin Calcium 10 mg 05/15/17 22:00 Lipitor - PO HS BONNIE Chlordiazepoxide HCl 25 mg 05/15/17 16:01 Librium - PO 05/16/17 05:49 Q4H PRN WITHDRAWAL(CONT SUBST) Chlordiazepoxide HCl 15 mg 05/15/17 23:00 Librium - PO [id number] BONNIE Folic Acid 1 mg 05/15/17 13:15 05/15/17 14:22 Folic Acid - PO 1 mg DAILY BONNIE Administration Lisinopril 20 mg 05/16/17 10:00 Prinivil PO DAILY BONNIE Magnesium Oxide 400 mg 05/15/17 22:00 Mag-Ox - PO 05/15/17 22:01 BID BONNIE Metoprolol Succinate 25 mg 05/16/17 10:00 Toprol Xl - PO DAILY BONNIE Pantoprazole Sodium 40 mg 05/16/17 10:00 Protonix - PO DAILY [facility] Multivit/Folic Acid/Iron 1 tab 05/16/17 10:00 Vitamins (Sjr) - PO DAILY BONNIE Thiamine HCl 100 mg 05/15/17 22:00 Vitamin B1 - PO HS BONNIE Zolpidem Tartrate 10 mg 05/15/17 16:01 Ambien - PO HS PRN INSOMNIA ASSESSMENT/PLAN: 57M with PMH of alcohol abuse admitted for ETOH detox w/ withdrawal #ETOH dependence w/ withdrawal -Detox Consult -Librium detox protocol -Thiamine, folic acid, Multivitamins -Ativan prn -Ambien prn -CIWA = 3 #HTN -continue home Metoprolol and Lisinopril #HLD - continue Lipitor #FEN -banana bag -monitor lytes -regular diet #Prophylaxis -SCDs -holding Hep SQ 2/2 thrombocytopenia -Protonix IVpush daily #dispo -admit to med-surg Visit type - Emergency Visit Emergency Visit: Yes ED Registration Date: 05/13/17 Care time: The patient presented to the Emergency Department on the above date and was hospitalized for further evaluation of their emergent condition. - New Patient This patient is new to me today: Yes Date on this admission: 05/15/17 - Critical Care Critical Care patient: Yes Total Critical Care Time (in minutes): 35 Critical Care Statement: The care of this patient involved high complexity decision making to prevent further life threatening deterioration of the patient 's condition and/or to evaluate & treat vital organ system(s) failure or risk of failure.
[2017-05-15] MEDS: ZOLPIDEM TARTRATE 5 MG TABLET PO PRN (21:48)
[2017-05-15] MEDS: ATORVASTATIN CA 10 MG TABLET (FP) PO SCH (21:48)
[2017-05-15] MEDS: THIAMINE HCL 100 MG TABLET (FP) PO SCH (21:48)
[2017-05-15] MEDS ORDERED: CHLORHEXIDINE GLUCONATE 4% CLEANSER FOR DECOLONIZATION TP SCH (22:00)
[2017-05-15] MEDS ORDERED: ATORVASTATIN CA 10 MG TABLET (FP) PO SCH (22:00)
[2017-05-15] MEDS: chlordiazePOXIDE 5 MG CAPSULE PO SCH (23:50)
[2017-05-16] MEDS: chlordiazePOXIDE 5 MG CAPSULE PO SCH ×4 (05:45→23:59)
[2017-05-16 08:30] LABS: HEMATOCRIT 37.9 % (35.4-49); HEMOGLOBIN 12.9 GM/dL (11.7-16.9); MCH 35.9 pg (25.7-33.7); MCHC 34.1 g/dl (32.0-35.9); MEAN CELL VOLUME 105.1 fl (80-96); MEAN PLT VOLUME 8.9 fl (7.5-11.1); PLATELET COUNT 77 K/MM3 (134-434); RDW 15.6 % (11.9-15.9); WHITE BLOOD COUNT 5.6 K/mm3 (4.0-10.0)
[2017-05-16] MEDS ORDERED: LOPERAMIDE HCL 2 MG CAPSULE PO PRN (08:32)
[2017-05-16 08:45] LABS: CHLORIDE 103 mmol/L (98-107); POTASSIUM 3.5 mmol/L (3.5-5.1); SODIUM 137 mmol/L (136-145)
[2017-05-16 08:57] LABS: ALBUMIN 2.6 g/dl (3.4-5.0); ALK PHOS 140 U/L (45-117); ANION GAP 8 (8-16); BLOOD UREA NITROGEN 6 mg/dL (7-18); CALCIUM 7.5 mg/dL (8.5-10.1); CO2 26 mmol/L (21-32); CREATININE 0.6 mg/dL (0.7-1.3); GLUCOSE,RANDOM 77 mg/dL (74-106); MAGNESIUM 1.8 mg/dL (1.8-2.4); SGOT/AST 79 U/L (15-37); SGPT/ALT 48 U/L (12-78); TOT PROT 5.7 g/dl (6.4-8.2)
[2017-05-16] MEDS ORDERED: chlordiazePOXIDE HCL 25 MG CAPSULE PO ONE (09:55)
[2017-05-16] MEDS ORDERED: PANTOPRAZOLE SODIUM 40 MG VIAL IVPUSH SCH (10:00)
--- NOTE | 2017-05-16 10:05 | PN ---
[facility] Progress Note (SOAP) Subjective: trasnferred from MICU last night, started on 15mg q6h, unable to sleep last night, c/o anxiety, tremulous Objective: 05/16/17 10:04 Vital Signs - 24 hr 05/15/17 05/15/17 05/15/17 12:00 14:00 16:03 Temperature 99.3 F Pulse Rate 98 H 92 H Respiratory 20 20 18 Rate Blood Pressure 137/75 125/54 147/74 O2 Sat by Pulse Oximetry (%) 05/15/17 05/15/17 05/15/17 18:00 18:19 21:00 Temperature 98.9 F Pulse Rate 92 H Respiratory 18 20 Rate Blood Pressure 146/84 O2 Sat by Pulse 96 96 Oximetry (%) 05/16/17 05:30 Temperature 97.9 F Pulse Rate 75 Respiratory 19 Rate Blood Pressure 140/62 O2 Sat by Pulse Oximetry (%) tremors, anxiety, agitation with roommate Assessment: 05/16/17 10:04 alcohol withdrawal sx - still symptomatic, continue detox 5mg q6h x24 hours, 50mg libirum x1 dosenow, d/c prn dosing, if medicalolystable may be d/c in am to counseling center ofhis choice, requested [facility].
[2017-05-16] MEDS ORDERED: PT OWN MED DRAWER 7, Y5N ONE (10:20)
[2017-05-16] MEDS: PANTOPRAZOLE 40 MG TABLET (FP) PO SCH (10:44)
[2017-05-16] MEDS: PRENATAL VITAMINS W/ FOLIC ACID TABLET (FP) PO SCH (10:44)
[2017-05-16] MEDS: FOLIC ACID 1 MG TABLET (FP) PO SCH (10:44)
[2017-05-16] MEDS: LISINOPRIL 20 MG TABLET (FP) PO SCH (10:45)
[2017-05-16] MEDS: metoPROLOL SUCCINATE 25 MG TAB.SR.24H (FP) PO SCH (10:45)
--- NOTE | 2017-05-16 16:58 | PN ---
Teaching Attending Note Name of Resident: Tejas Rhoades ATTENDING PHYSICIAN STATEMENT I saw and evaluated the patient. I reviewed the resident's note and discussed the case with the resident. I agree with the resident's findings and plan as documented. SUBJECTIVE: Patient feels better. OBJECTIVE: Vital Signs Period Temp Pulse Resp BP Sys/Ortiz Pulse Ox Last 24 Hr 97.8 F-98.9 F 75-92 18-20 140-146/62-84 96-96 HEART: S1S2, RRR LUNGS: Clear ABDOMEN: Obese, soft, non-tender, non-distended, normal BS EXTREMITIES: No edema Laboratory Results - last 24 hr 05/16/17 05/16/17 07:00 07:00 WBC 5.6 RBC 3.60 L Hgb 12.9 Hct 37.9 MCV 105.1 H MCH 35.9 H MCHC 34.1 RDW 15.6 Plt Count 77 L MPV 8.9 Sodium 137 Potassium 3.5 Chloride 103 Carbon Dioxide 26 Anion Gap 8 BUN 6 L Creatinine 0.6 L Creat Clearance w eGFR > 60 Random Glucose 77 D Calcium 7.5 L Magnesium 1.8 Total Bilirubin 1.0 D AST 79 H ALT 48 Alkaline Phosphatase 140 H Total Protein 5.7 L Albumin 2.6 L Current Medications Generic Name Dose Route Start Last Admin Trade Name Freq PRN Reason Stop Dose Admin Atorvastatin Calcium 10 mg 05/15/17 22:00 05/15/17 21:48 Lipitor - PO 10 mg HS BONNIE Administration Chlordiazepoxide HCl 5 mg 05/16/17 12:00 05/16/17 12:11 Librium - PO 05/17/17 08:00 5 mg Q6HPO BONNIE Administration Folic Acid 1 mg 05/15/17 13:15 05/16/17 10:44 Folic Acid - PO 1 mg DAILY BONNIE Administration Lisinopril 20 mg 05/16/17 10:00 05/16/17 10:45 Prinivil PO 20 mg DAILY BONNIE Administration Loperamide HCl 2 mg 05/16/17 08:32 Imodium - PO Q8H PRN DIARRHEA Metoprolol Succinate 25 mg 05/16/17 10:00 05/16/17 10:45 Toprol Xl - PO 25 mg DAILY BONNIE Administration Pantoprazole Sodium 40 mg 05/16/17 10:00 05/16/17 10:44 Protonix - PO 40 mg DAILY BONNIE Administration Multivit/Folic Acid/Iron 1 tab 05/16/17 10:00 05/16/17 10:44 Vitamins (Sjr) - PO 1 tab DAILY BONNIE Administration Thiamine HCl 100 mg 05/15/17 22:00 05/15/17 21:48 Vitamin B1 - PO 100 mg HS BONNIE Administration Zolpidem Tartrate 10 mg 05/15/17 16:01 05/15/17 21:48 Ambien - PO 10 mg HS PRN Administration INSOMNIA ASSESSMENT AND PLAN: This is a 57 year old man with a history of HTN, hyperlipidemia, anxiety, depression, alcohol abuse who presented to the ED with anxiety, tremors, sweats and headache. 1. Alcohol withdrawal, uncomplicated - Continue Librium detox (completes tomorrow AM) 2. Continuous alcohol dependence - Continue multivitamin, thiamin, folic acid 3. Thrombocytopenia secondary to alcohol - Continue to monitor platelets 4. Alcoholic hepatitis - LFTs improving 5. Hypocalemia - Corrected calcium is 8.6 6. Hypomagnesemia - Continue MagOx 7. HTN - Continue Toprol XL, Lisinopril 8. Hyperlipidemia - Continue Lipitor 9. Anxiety and depression 10. Obesity with BMI 37.9
--- NOTE | 2017-05-16 21:04 | PN ---
Physical Exam: SUBJECTIVE: Patient seen and examined at bedside. Patient continues to improve daily. Still complains of tremulousness OBJECTIVE: Vital Signs Period Temp Pulse Resp BP Sys/Ortiz Pulse Ox Last 24 Hr 97.8 F-97.9 F 75-80 19-20 140-144/62-66 96 GENERAL: The patient is awake, alert, and fully oriented, in no acute distress. NECK: Trachea midline, full range of motion, supple. LUNGS: Breath sounds equal, clear to auscultation bilaterally, no wheezes, no crackles, no accessory muscle use. HEART: Regular rate and rhythm, S1, S2 without murmur, rub or gallop. ABDOMEN: Soft, nontender, nondistended, normoactive bowel sounds, no guarding, no rebound, no hepatosplenomegaly, no masses. EXTREMITIES: 2+ pulses, warm, well-perfused, no edema. Moderate course tremor observed; unchanged from yesterday's exam. NEUROLOGICAL: Cranial nerves II through X grossly intact. Normal speech, gait not observed. SKIN: Warm, dry, normal turgor, no rashes or lesions noted. No diaphoresis Laboratory Results - last 24 hr 05/16/17 05/16/17 07:00 07:00 WBC 5.6 RBC 3.60 L Hgb 12.9 Hct 37.9 MCV 105.1 H MCH 35.9 H MCHC 34.1 RDW 15.6 Plt Count 77 L MPV 8.9 Sodium 137 Potassium 3.5 Chloride 103 Carbon Dioxide 26 Anion Gap 8 BUN 6 L Creatinine 0.6 L Creat Clearance w eGFR > 60 Random Glucose 77 D Calcium 7.5 L Magnesium 1.8 Total Bilirubin 1.0 D AST 79 H ALT 48 Alkaline Phosphatase 140 H Total Protein 5.7 L Albumin 2.6 L Active Medications Generic Name Dose Route Start Last Admin Trade Name Freq PRN Reason Stop Dose Admin Atorvastatin Calcium 10 mg 05/15/17 22:00 05/15/17 21:48 Lipitor - PO 10 mg HS BONNIE Administration Chlordiazepoxide HCl 5 mg 05/16/17 12:00 05/16/17 17:57 Librium - PO 05/17/17 08:00 5 mg Q6HPO BONNIE Administration Folic Acid 1 mg 05/15/17 13:15 05/16/17 10:44 Folic Acid - PO 1 mg DAILY BONNIE Administration Lisinopril 20 mg 05/16/17 10:00 05/16/17 10:45 Prinivil PO 20 mg DAILY BONNIE Administration Loperamide HCl 2 mg 05/16/17 08:32 Imodium - PO Q8H PRN DIARRHEA Metoprolol Succinate 25 mg 05/16/17 10:00 05/16/17 10:45 Toprol Xl - PO 25 mg DAILY BONNIE Administration Pantoprazole Sodium 40 mg 05/16/17 10:00 05/16/17 10:44 Protonix - PO 40 mg DAILY BONNIE Administration Multivit/Folic Acid/Iron 1 tab 05/16/17 10:00 05/16/17 10:44 Vitamins (Sjr) - PO 1 tab DAILY BONNIE Administration Thiamine HCl 100 mg 05/15/17 22:00 05/15/17 21:48 Vitamin B1 - PO 100 mg HS BONNIE Administration Zolpidem Tartrate 10 mg 05/15/17 16:01 05/15/17 21:48 Ambien - PO 10 mg HS PRN Administration INSOMNIA ASSESSMENT/PLAN: 57M with PMH of alcohol abuse admitted for ETOH detox w/ withdrawal #ETOH dependence w/ withdrawal -Detox onboard -Librium detox protocol tapered today -Thiamine, folic acid, Multivitamins -Ativan prn -Ambien prn -CIWA = 3 #HTN -continue home Metoprolol and Lisinopril #HLD - continue Lipitor #FEN -no fluids indicated -monitor lytes -regular diet #Prophylaxis -SCDs -holding Hep SQ 2/2 thrombocytopenia -Protonix IVpush daily #dispo -admit to med-surg -per detox specialist, patient should be stable for transfer to detox facility ([facility]) Visit type - Emergency Visit Emergency Visit: Yes ED Registration Date: 05/13/17 Care time: The patient presented to the Emergency Department on the above date and was hospitalized for further evaluation of their emergent condition. - New Patient This patient is new to me today: No - Critical Care Critical Care patient: No
[2017-05-16] MEDS: THIAMINE HCL 100 MG TABLET (FP) PO SCH (23:45)
[2017-05-16] MEDS: ATORVASTATIN CA 10 MG TABLET (FP) PO SCH (23:46)
[2017-05-16] MEDS: ZOLPIDEM TARTRATE 5 MG TABLET PO PRN (23:46)
[2017-05-17] MEDS: chlordiazePOXIDE 5 MG CAPSULE PO SCH (06:33)
[2017-05-17 10:08] LABS: HEMATOCRIT 38.8 % (35.4-49); HEMOGLOBIN 13.3 GM/dL (11.7-16.9); MCH 35.8 pg (25.7-33.7); MCHC 34.2 g/dl (32.0-35.9); MEAN CELL VOLUME 104.7 fl (80-96); MEAN PLT VOLUME 8.8 fl (7.5-11.1); PLATELET COUNT 93 K/MM3 (134-434); RBC 3.71 M/mm3 (4.00-5.60); RDW 15.7 % (11.9-15.9); WHITE BLOOD COUNT 6.2 K/mm3 (4.0-10.0)
[2017-05-17 10:39] LABS: ANION GAP 12 (8-16); BLOOD UREA NITROGEN 8 mg/dL (7-18); CALCIUM 8.3 mg/dL (8.5-10.1); CHLORIDE 100 mmol/L (98-107); CO2 23 mmol/L (21-32); CREATININE 0.7 mg/dL (0.7-1.3); GLUCOSE,RANDOM 113 mg/dL (74-106); PHOSPHOROUS 3.4 mg/dL (2.5-4.9); POTASSIUM 3.4 mmol/L (3.5-5.1); SODIUM 135 mmol/L (136-145)
--- NOTE | 2017-05-17 10:39 | PN ---
[facility] Progress Note (SOAP) Subjective: still tremulous but sob and very weak, requesting pt rhab for deconditioning Objective: 05/17/17 10:49 Vital Signs - 24 hr 05/16/17 05/16/17 05/17/17 21:00 22:44 05:48 Temperature 98.2 F 98.4 F Pulse Rate 80 80 Respiratory 20 20 20 Rate Blood Pressure 130/70 140/80 O2 Sat by Pulse 96 Oximetry (%) Laboratory Results - last 24 hr 05/17/17 05/17/17 09:50 09:50 WBC 6.2 RBC 3.71 L Hgb 13.3 Hct 38.8 MCV 104.7 H MCH 35.8 H MCHC 34.2 RDW 15.7 Plt Count 93 L D MPV 8.8 Sodium 135 L Potassium 3.4 L Chloride 100 Carbon Dioxide 23 Anion Gap 12 BUN 8 D Creatinine 0.7 Random Glucose 113 H D Calcium 8.3 L Phosphorus 3.4 Magnesium 2.0 hypokalemia, Assessment: 05/17/17 10:50 completed alcohol detox as ordered, medically stable, low - supplement k, [id number], woudl like to go for inpatient rehab ideally prior to going home. because of weather would not recommend d/c home today.
[2017-05-17] MEDS ORDERED: PT OWN MED DRAWER 7, Y5N ONE (10:59)
[2017-05-17] MEDS: metoPROLOL SUCCINATE 25 MG TAB.SR.24H (FP) PO SCH (11:00)
[2017-05-17] MEDS: PRENATAL VITAMINS W/ FOLIC ACID TABLET (FP) PO SCH (11:01)
[2017-05-17] MEDS: PANTOPRAZOLE 40 MG TABLET (FP) PO SCH (11:01)
[2017-05-17] MEDS: FOLIC ACID 1 MG TABLET (FP) PO SCH (11:01)
[2017-05-17] MEDS: LISINOPRIL 20 MG TABLET (FP) PO SCH (11:02)
[2017-05-17] MEDS ORDERED: chlordiazePOXIDE HCL 25 MG CAPSULE PO ONE (12:30)
[2017-05-17] MEDS: POTASSIUM CHLORIDE TABS 20 MEQ TABLET.ER (FP) PO SCH ×2 (14:11→21:38)
--- NOTE | 2017-05-17 18:01 | PN ---
Teaching Attending Note Name of Resident: Tejas Rhoades ATTENDING PHYSICIAN STATEMENT I saw and evaluated the patient. I reviewed the resident's note and discussed the case with the resident. I agree with the resident's findings and plan as documented. SUBJECTIVE: no fever or chills . no pain, can't walk as he feels weak and unsteady OBJECTIVE: NA D Cv: RRR Lungs: CTAB ext : no edema . minimal tremor inhands A/P ' 57 y/o man with H/o Alcohol abuse , HTN, anxiety , HLP and other medical problems who presented with anxiety and was found to have alcohol withdrawal 1- ETOH withdrawal : finished detox. has minimal tremor but no other signs fo withdrawal - cont thiamine and folate 2- thrombocytopenia: stable l. likely due to alcohol use 3- hypokalemia : replete 4- HTN: toprol and lisinopril dispo : he is not interested in Alcohol rehab., he wants to go to SNF
--- NOTE | 2017-05-17 19:47 | PN ---
Physical Exam: SUBJECTIVE: Patient seen and examined at bedside. Patient feels ok today, states he feels "not himself" and is overwhelmed by the number of people entering and exiting his room. OBJECTIVE: Vital Signs Period Temp Pulse Resp BP Sys/Ortiz Pulse Ox Last 24 Hr 97.9 F-98.4 F 80-93 18-20 128-145/54-80 96 GENERAL: The patient is awake, alert, and fully oriented, in no acute distress. NECK: Trachea midline, full range of motion, supple. LUNGS: Breath sounds equal, clear to auscultation bilaterally, no wheezes, no crackles, no accessory muscle use. HEART: Regular rate and rhythm, S1, S2 without murmur, rub or gallop. ABDOMEN: Soft, nontender, nondistended, normoactive bowel sounds, no guarding, no rebound, no hepatosplenomegaly, no masses. EXTREMITIES: 2+ pulses, warm, well-perfused, no edema. Mild coarse tremor observed; improved from yesterday's exam. NEUROLOGICAL: Cranial nerves II through X grossly intact. Normal speech, gait not observed. SKIN: Warm, dry, normal turgor, no rashes or lesions noted. No diaphoresis Laboratory Results - last 24 hr 05/17/17 05/17/17 09:50 09:50 WBC 6.2 RBC 3.71 L Hgb 13.3 Hct 38.8 MCV 104.7 H MCH 35.8 H MCHC 34.2 RDW 15.7 Plt Count 93 L D MPV 8.8 Sodium 135 L Potassium 3.4 L Chloride 100 Carbon Dioxide 23 Anion Gap 12 BUN 8 D Creatinine 0.7 Random Glucose 113 H D Calcium 8.3 L Phosphorus 3.4 Magnesium 2.0 Active Medications Generic Name Dose Route Start Last Admin Trade Name Freq PRN Reason Stop Dose Admin Atorvastatin Calcium 10 mg 05/15/17 22:00 05/16/17 23:46 Lipitor - PO 10 mg HS BONNIE Administration Folic Acid 1 mg 05/15/17 13:15 05/17/17 11:01 Folic Acid - PO 1 mg DAILY BONNIE Administration Lisinopril 20 mg 05/16/17 10:00 05/17/17 11:02 Prinivil PO 20 mg DAILY BONNIE Administration Loperamide HCl 2 mg 05/16/17 08:32 05/17/17 08:00 Imodium - PO 2 mg Q8H PRN Administration DIARRHEA Metoprolol Succinate 25 mg 05/16/17 10:00 05/17/17 11:00 Toprol Xl - PO 25 mg DAILY BONNIE Administration Pantoprazole Sodium 40 mg 05/16/17 10:00 05/17/17 11:01 Protonix - PO 40 mg DAILY BONNIE Administration Potassium Chloride 20 meq 05/17/17 12:30 05/17/17 14:11 K-Dur - PO 20 meq BID BONNIE Administration Multivit/Folic Acid/Iron 1 tab 05/16/17 10:00 05/17/17 11:01 Vitamins (Sjr) - PO 1 tab DAILY BONNIE Administration Thiamine HCl 100 mg 05/15/17 22:00 05/16/17 23:45 Vitamin B1 - PO 100 mg HS BONNIE Administration Zolpidem Tartrate 10 mg 05/15/17 16:01 05/16/17 23:46 Ambien - PO 10 mg HS PRN Administration INSOMNIA ASSESSMENT/PLAN: 57M with PMH of alcohol abuse admitted for ETOH detox w/ withdrawal #ETOH dependence w/ withdrawal -Detox onboard -Librium detox protocol -Thiamine, folic acid, Multivitamins -CIWA = 2 #HTN -continue home Metoprolol and Lisinopril #HLD - continue Lipitor #FEN -no fluids indicated -monitor lytes -regular diet #Prophylaxis -SCDs -holding Hep SQ 2/2 thrombocytopenia -Protonix IVpush daily #dispo -admit to med-surg -patient only able to walk 10 ft w/ PT today; patient will need SNF Visit type - Emergency Visit Emergency Visit: Yes ED Registration Date: 05/13/17 Care time: The patient presented to the Emergency Department on the above date and was hospitalized for further evaluation of their emergent condition. - New Patient This patient is new to me today: No - Critical Care Critical Care patient: No
[2017-05-17] MEDS: ZOLPIDEM TARTRATE 5 MG TABLET PO PRN (21:38)
[2017-05-17] MEDS: ATORVASTATIN CA 10 MG TABLET (FP) PO SCH (21:38)
[2017-05-17] MEDS: THIAMINE HCL 100 MG TABLET (FP) PO SCH (21:38)
[2017-05-18 05:54] VITALS: TEMP 99
[2017-05-18] MEDS: FOLIC ACID 1 MG TABLET (FP) PO SCH (09:43)
[2017-05-18] MEDS: metoPROLOL SUCCINATE 25 MG TAB.SR.24H (FP) PO SCH (09:43)
[2017-05-18] MEDS: POTASSIUM CHLORIDE TABS 20 MEQ TABLET.ER (FP) PO SCH (09:43)
[2017-05-18] MEDS: LISINOPRIL 20 MG TABLET (FP) PO SCH (09:44)
[2017-05-18] MEDS: PANTOPRAZOLE 40 MG TABLET (FP) PO SCH (09:44)
[2017-05-18] MEDS ORDERED: PT OWN MED DRAWER 7, Y5N ONE (09:45)
[2017-05-18] MEDS: PRENATAL VITAMINS W/ FOLIC ACID TABLET (FP) PO SCH (09:46)
[2017-05-18 10:07] LABS: HEMATOCRIT 40.2 % (35.4-49); HEMOGLOBIN 13.6 GM/dL (11.7-16.9); MCH 35.5 pg (25.7-33.7); MCHC 33.9 g/dl (32.0-35.9); PLATELET COUNT 118 K/MM3 (134-434); RBC 3.83 M/mm3 (4.00-5.60); RDW 15.8 % (11.9-15.9); WHITE BLOOD COUNT 6.8 K/mm3 (4.0-10.0)
[2017-05-18 10:14] LABS: ANION GAP 12 (8-16); BLOOD UREA NITROGEN 11 mg/dL (7-18); CALCIUM 8.3 mg/dL (8.5-10.1); CHLORIDE 102 mmol/L (98-107); CO2 23 mmol/L (21-32); CREATININE 0.7 mg/dL (0.7-1.3); GLUCOSE,RANDOM 101 mg/dL (74-106); MAGNESIUM 1.9 mg/dL (1.8-2.4); PHOSPHOROUS 3.5 mg/dL (2.5-4.9); POTASSIUM 3.8 mmol/L (3.5-5.1); SODIUM 137 mmol/L (136-145)
[2017-05-18 10:55] VITALS: BP 150/91; PULSE 91
--- NOTE | 2017-05-18 18:56 | PN ---
Teaching Attending Note Name of Resident: Tejas Rhoades ATTENDING PHYSICIAN STATEMENT I saw and evaluated the patient. I reviewed the resident's note and discussed the case with the resident. I agree with the resident's findings and plan as documented. SUBJECTIVE: No fever or chills, no pain , feels anxious and dizzy after receiving a phone call about his bills OBJECTIVE: NAD Cv: RRR Lungs: CTAB Ext : no edema .no tremor in hands A/P : 57 y/o man with H/o Alcohol abuse , HTN, anxiety , HLP and other medical problems who presented with anxiety and was found to have alcohol withdrawal 1- ETOH withdrawal: finished detox. - cont thiamine and folate 2- thrombocytopenia: plt count improved. likely due to alcohol use 3- HTN: toprol and lisinopril dc home today
--- NOTE | 2017-05-18 20:22 | DS ---
Physical Exam: SUBJECTIVE: Patient seen and examined OBJECTIVE: Vital Signs Period Temp Pulse Resp BP Sys/Ortiz Pulse Ox Last 24 Hr 97.9 F-99.0 F 78-98 20-20 147-163/76-100 97-97 PHYSICAL EXAM GENERAL: The patient is awake, alert, and fully oriented, in no acute distress. HEAD: Normal with no signs of trauma. EYES: PERRL, extraocular movements intact, sclera anicteric, conjunctiva clear. ENT: Ears normal, nares patent, oropharynx clear without exudates, moist mucous membranes. NECK: Trachea midline, full range of motion, supple. LUNGS: Breath sounds equal, clear to auscultation bilaterally, no wheezes, no crackles, no accessory muscle use. HEART: Regular rate and rhythm, S1, S2 without murmur, rub or gallop. ABDOMEN: Soft, nontender, nondistended, normoactive bowel sounds, no guarding, no rebound, no hepatosplenomegaly, no masses. EXTREMITIES: 2+ pulses, warm, well-perfused, no edema. NEUROLOGICAL: Cranial nerves II through XII grossly intact. Normal speech, gait not observed. PSYCH: Normal mood, normal affect. SKIN: Warm, dry, normal turgor, no rashes or lesions noted. LABS Laboratory Results - last 24 hr 05/18/17 05/18/17 09:10 09:10 WBC 6.8 RBC 3.83 L Hgb 13.6 Hct 40.2 MCV 105.0 H MCH 35.5 H MCHC 33.9 RDW 15.8 Plt Count 118 L D MPV 9.0 Sodium 137 Potassium 3.8 Chloride 102 Carbon Dioxide 23 Anion Gap 12 BUN 11 D Creatinine 0.7 Random Glucose 101 Calcium 8.3 L Phosphorus 3.5 Magnesium 1.9 HOSPITAL COURSE: Date of Admission:05/13/17 Date of Discharge: 05/18/17 Discharge Summary Reason For Visit: ALCOHOL ABUSE Condition: Improved - Instructions Diet, Activity, Other Instructions: You were admitted to the hospital for the treatment of his alcohol withdrawals. We are discharging you on a new vitamin to help you stay healthy. This vitamins are called thiamine. You should take one of each of these vitamins once per day. You should continue to take the rest of your home medication, including your folate, as directed. You should follow up with your primary care physician within one week of discharge home. You should also go to an outpatient rehab facility to help you detox further. Please abstain from drinking alcohol. It is harmful to your health and is associated with several medical conditions. If you begin to experience chest pain, shortness of breath or if any of your symptoms get worse, please call your doctor or return to the emergency department. Referrals: NINA GUARDADO [Non Staff, Medical] - 1 Week Disposition: HOME - Home Medications Comprehensive Discharge Medication List: Ambulatory Orders Ascorbate Calcium [Vitamin C] 500 mg PO DAILY 03/22/17 Folic Acid 1 mg PO DAILY 03/22/17 Lisinopril 20 mg PO DAILY 03/22/17 Metoprolol Tartrate 25 mg PO DAILY 03/22/17 Multivitamin [One Daily] 1 each PO DAILY 03/22/17 Simvastatin 20 mg PO HS 03/22/17 Sertraline HCl [Zoloft] 150 mg PO DAILY #30 tablet 03/23/17 Amlodipine Besylate [Norvasc -] 2.5 mg PO DAILY 05/17/17 Metoprolol Succinate [Toprol Xl] 25 mg PO DAILY 05/17/17 Thiamine HCl [Vitamin B1 -] 100 mg PO HS #30 tablet 05/17/17 - Discharge Referral Referred to [facility] Med P.C.: No
--- NOTE | 2017-05-19 12:41 | DS ---
Physical Exam: SUBJECTIVE: Patient seen and examined on 05/18/16 by me; wanting to go home instead of [facility] facility. Still complains of mild tremor, although much improved. Denies fever, chills, chest pain, shortness of breath, audio or visual disturbance. OBJECTIVE: PHYSICAL EXAM GENERAL: The patient is awake, alert, and fully oriented, in no acute distress. HEAD: Normal with no signs of trauma. LUNGS: Breath sounds equal, clear to auscultation bilaterally, no wheezes, no crackles, no accessory muscle use. HEART: Regular rate and rhythm, S1, S2 without murmur, rub or gallop. ABDOMEN: obese. soft, nontender, nondistended, normoactive bowel sounds, no guarding, no rebound, no hepatosplenomegaly, no masses. EXTREMITIES: 2+ pulses, warm, well-perfused, no edema. NEUROLOGICAL: Cranial nerves II through XII grossly intact. Normal speech, gait not observed. mild tremors with hand extension PSYCH: depressed mood LABS HOSPITAL COURSE: Date of Admission:05/13/17 Date of Discharge: 05/19/17 This is a 57 year old male with a medical history of alcohol and substance abuse (k2), HTN, HTN, HLD, anxiety, depression, who presents after a drinking binge. Patient came in tremulous and anxious. He was initially sent to the ICU due to audio disturbance and thought to be in DTs. Initial CIWA score 12. He was started on librium protocol, and finished protocol on regular med/surg floors. Patient felt unable to ambulate with stability so initially requested SNF. HE denied inpatient detox facility/[facility]. He changed his mind and wanted to be discharged home. He state he will attend an outpatient rehab. HE was sent home on vitamins folate and thiamine. Counseled on alcohol abstinence. Patient was thrombocytopenic, which was most likely secondary to alcohol use, this improved throughout admission. Hypertension was controlled with home medications. Minutes to complete discharge: 36 Discharge Summary Reason For Visit: ALCOHOL ABUSE Condition: Improved - Instructions Diet, Activity, Other Instructions: You were admitted to the hospital for the treatment of his alcohol withdrawals. We are discharging you on a new vitamin to help you stay healthy. This vitamins are called thiamine. You should take one of each of these vitamins once per day. You should continue to take the rest of your home medication, including your folate, as directed. You should follow up with your primary care physician within one week of discharge home. You should also go to an outpatient rehab facility to help you detox further. Please abstain from drinking alcohol. It is harmful to your health and is associated with several medical conditions. If you begin to experience chest pain, shortness of breath or if any of your symptoms get worse, please call your doctor or return to the emergency department. Referrals: N[facility] GUARDADO [Non Staff, Medical] - 1 Week Disposition: HOME - Home Medications Comprehensive Discharge Medication List: Ambulatory Orders Ascorbate Calcium [Vitamin C] 500 mg PO DAILY 03/22/17 Folic Acid 1 mg PO DAILY 03/22/17 Lisinopril 20 mg PO DAILY 03/22/17 Metoprolol Tartrate 25 mg PO DAILY 03/22/17 Multivitamin [One Daily] 1 each PO DAILY 03/22/17 Simvastatin 20 mg PO HS 03/22/17 Sertraline HCl [Zoloft] 150 mg PO DAILY #30 tablet 03/23/17 Amlodipine Besylate [Norvasc -] 2.5 mg PO DAILY 05/17/17 Metoprolol Succinate [Toprol Xl] 25 mg PO DAILY 05/17/17 Thiamine HCl [Vitamin B1 -] 100 mg PO HS #30 tablet 05/17/17 Problem List - Problems (1) Alcohol abuse Code(s): F10.10 - ALCOHOL ABUSE, UNCOMPLICATED (2) Anxiety Code(s): F41.9 - ANXIETY DISORDER, UNSPECIFIED (3) Depression Code(s): F32.9 - MAJOR DEPRESSIVE DISORDER, SINGLE EPISODE, UNSPECIFIED Qualifiers: Depression Type: unspecified Qualified Code(s): F32.9 - Major depressive disorder, single episode, unspecified (4) HTN (hypertension) Code(s): I10 - ESSENTIAL (PRIMARY) HYPERTENSION Qualifiers: Hypertension type: essential hypertension Qualified Code(s): I10 - Essential (primary) hypertension (5) Hypercholesteremia Code(s): E78.00 - PURE HYPERCHOLESTEROLEMIA, UNSPECIFIED This patient is new to me today: No Emergency Visit: Yes ED Registration Date: 05/13/17 Care time: The patient presented to the Emergency Department on the above date and was hospitalized for further evaluation of their emergent condition. Critical Care patient: No - Discharge Referral Referred to [facility] Med P.C.: No
== END 2017-05-18 12:05 | disposition home or self-care (01) | DRG 897 ==
LOC: JER 19:50 → JERBED 05-13 04:02 → UNDOADMOB 05-13 04:12 → JERBED 05-13 04:12 → OBSVTOIN 05-13 05:27 → JICU 05-13 08:15 → J6S 05-15 16:10
PROVIDERS: ADMIT Internal Medicine; ATTEND Internal Medicine
DX: F10.230 Alcohol dependence with withdrawal, uncomplicated (principal); E87.6 Hypokalemia; E83.51 Hypocalcemia; I10 Essential (primary) hypertension; E78.5 Hyperlipidemia, unspecified; F41.9 Anxiety disorder, unspecified; F32.9 Major depressive disorder, single episode, unspecified; E83.42 Hypomagnesemia; E66.9 Obesity, unspecified; F10.220 Alcohol dependence with intoxication, uncomplicated; D69.6 Thrombocytopenia, unspecified; Z59.0 Homelessness; R20.0 Anesthesia of skin; Y90.8 Blood alcohol level of 240 mg/100 ml or more; Z68.37 Body mass index [BMI] 37.0-37.9, adult; G47.00 Insomnia, unspecified; K70.10 Alcoholic hepatitis without ascites
CPT/HCPCS: 36415; 70450-TC; 71045-TC-FY; 71250-TC; 80048; 80053; 80307; 81003; 83036; 83690; 83735; 84100; 85025; 85027; 87389; 90732; 93005; 93010; 97116-GP; 97161-GP; 99284-25; G0009; G0378; J1644; J7030